=== PATIENT | male | born 1950 | race Caucasian/White ===

== ENCOUNTER 2020-04-26 15:57 | Outpatient (CLI) | payer MEDICARE, SELFPAY ==
--- NOTE | 2020-04-26 16:13 | XR_ITS ---
WS: [id number] PA and lateral chest, 04/26/2020 Clinical Data: COUGH/DYSPNEA Comparison: None. Findings: There are bilateral patchy opacities throughout both lungs. No definite masses or effusions are seen. The heart size is normal. The aortic arch and descending aorta are tortuous. No pneumothor ax is seen. XR/XR chest 2V* [id number] Impression: 1. Bilateral patchy opacities which could indicate acute pneumonia. 2. Atherosclerosis. 3. Recommend follow-up chest x-ray in one to 2 days.
== END 2020-04-26 15:58 | disposition home or self-care (01) ==
LOC: RAD 16:03
PROVIDERS: PCP Family Medicine; Visit Provider Family Medicine
DX: R05 Cough (principal); R06.00 Dyspnea, unspecified; I70.90 Unspecified atherosclerosis
CPT/HCPCS: 71046

== ENCOUNTER 2020-05-11 12:34 | Outpatient (CLI) | payer MEDICARE, SELFPAY ==
--- NOTE | 2020-05-11 12:43 | XR_ITS ---
WS: [id number] PA and lateral chest, 05/11/2020 Clinical Data: PNEUMONIA/COUGH/DYSPNEA Comparison: PA and lateral chest, 04/26/2020. Findings: There are bilateral patchy opacities throughout both lungs. Although this could represent a n acute pneumonia this could also represent chronic interstitial fibrosis. The heart is slightly enla rged. There are no effusions. No pneumothorax is noted. The aortic arch and descending aorta are tort uous. XR/XR chest 2V* [id number] Impression: 1. No change in extensive bilateral opacities throughout both lungs. 2. Atherosclerosis and mild cardiomegaly
== END 2020-05-11 12:35 | disposition home or self-care (01) ==
LOC: RAD 12:41
PROVIDERS: PCP Family Medicine; Visit Provider Family Medicine
DX: J18.9 Pneumonia, unspecified organism (principal); R05 Cough; R06.00 Dyspnea, unspecified; I70.90 Unspecified atherosclerosis; I51.7 Cardiomegaly
CPT/HCPCS: 71046

== ENCOUNTER 2020-05-19 12:39 | Outpatient (CLI) | payer MEDICARE, SELFPAY ==
--- NOTE | 2020-05-19 12:52 | CT_ITS ---
WS: [id number] CT scan of the chest with IV contrast, additional two-dimensional coronal and sagittal reconstruction was performed. 05/19/2020 Clinical Data: PNEUMONIA, COUGH, DYSPNEA Comparison: PA and lateral chest, 05/11/2020. DLP: 944.[address] scans at [facility] use at least one of these dose optimization techniques: automat ed exposure control; mA and/or kV adjustment per patient size (includes targeted exams where dose is matched to clinical indication); or iterative reconstruction. Findings: No nodules, masses or effusions are seen. There are extensive interstitial changes throughout both max ngs most consistent with chronic interstitial pneumonia. The heart size is normal with no pericardial effusion. The pulmonary arterial system and thoracic aorta demonstrate no abnormalities or dilatatio ns. The trachea bifurcates into the bronchi. The thyroid gland shows normal enhancement. There is no axillary or significant mediastinal adenopathy. There is a large hiatal hernia behind the heart. The upper abdomen demonstrates a gallstone. The spleen adrenal glands show no abnormalities. The juan carlos er shows fatty infiltration and minimal surface irregularity which can be seen with cirrhosis. There is enlargement of the head of the pancreas that patient may have a history of chronic pancreatitis. CT/CT chest w con* [id number] Impression: 1. Chronic interstitial change throughout the lung most consistent with chronic interstitial pneumonia. 2. Large hiatal hernia behind the heart. 3. Enlargement and irregularity of the head of the pancreas suggestive of chron ic pancreatitis. 4. Cholelithiasis.
[2020-05-19 13:14] LABS: Blood Urea Nitrogen 16 mg/dL (8-23); Glomerular Filtration Rate 84.2 mL/min (90-130)
[2020-05-19] MEDS: iohexol 300 mg/mL 100 mL Btl IV (13:21)
== END 2020-05-19 12:40 | disposition home or self-care (01) ==
PROVIDERS: PCP Family Medicine; Visit Provider Family Medicine
DX: J18.9 Pneumonia, unspecified organism (principal); R05 Cough; R06.00 Dyspnea, unspecified; K80.20 Calculus of gallbladder without cholecystitis without obstruction; Q45.3 Other congenital malformations of pancreas and pancreatic duct; K44.9 Diaphragmatic hernia without obstruction or gangrene
CPT/HCPCS: 71260; 82565; 84520; Q9967

== ENCOUNTER 2020-06-01 13:20 | Outpatient (CLI) | payer MEDICARE, SELFPAY ==
[2020-06-01 14:27] LABS: C Reactive Protein 9.8 mg/L (0.0-4.9); Creatine Phosphokinase 49 U/L (39-308)
[2020-06-01 15:44] LABS: Erythrocyte Sedimentation Rate 7 mm/hr (0-10)
[2020-06-02 13:22] LABS: Aldolase 4.8 U/L (< OR = 8.1)
[2020-06-02 13:58] LABS: Anti-Nuclear Antibody Screen NEGATIVE (NEGATIVE)
[2020-06-02 15:03] LABS: SCL 70 <1.0 NEG AI (<1.0 NEG); SS A Ro Sjogrens Antibody <1.0 NEG AI (<1.0 NEG); SS-B/LA IGG <1.0 NEG AI (<1.0 NEG)
[2020-06-02 16:42] LABS: Cyclic Citrullinated Peptide 100 UNITS
== END 2020-06-01 13:21 | disposition home or self-care (01) ==
PROVIDERS: PCP Nurse Practitioner Family; Visit Provider Internal Medicine Critical Care Medicine
DX: J84.9 Interstitial pulmonary disease, unspecified (principal)
CPT/HCPCS: 36415; 82085; 82550; 84182; 85651; 86038; 86140; 86235

== ENCOUNTER → 2020-07-07 08:10 | Outpatient (BNVA) | payer MEDICARE, SELFPAY | PROVIDERS: PCP Nurse Practitioner Family; Visit Provider Internal Medicine Critical Care Medicine | DX: Z01.812 Encounter for preprocedural laboratory examination (principal); Z20.822 Contact with and (suspected) exposure to COVID-19 | CPT/HCPCS: 87635 ==

== ENCOUNTER 2020-07-11 13:31 | Outpatient (CLI) | payer MEDICARE, SELFPAY ==
--- NOTE | 2020-07-11 13:30 | CT_ITS ---
WS: [id number] CT CHEST HIGH-RESOLUTION TECHNIQUE: High-resolution Noncontrast CT of the chest with coronal and sagittal reformatted images. Inspiration, expiration, prone imaging. CLINICAL INFORMATION: Interstitial lung disease COMPARISON: May 19, 2020 DLP: 1041.[address] scans at [facility] use at least one of these dose optimization techniques: automat ed exposure control; mA and/or kV adjustment per patient size (includes targeted exams where dose is matched to clinical indication); or iterative reconstruction. FINDINGS: Chronic interstitial thickening with reticular opacities throughout both lungs compatible with histor y of interstitial lung disease. Subpleural honeycombing in the mid and lower lungs bilaterally. Bronc hiectasis in both lower lobes. No air trapping on the expiratory imaging. Large esophageal hiatal hernia with partial intrathoracic stomach. No mediastinal or hilar lymphadeno henry. No axillary lymphadenopathy. Cholelithiasis. CT/CT chest wo con [id number] IMPRESSION: 1. Interstitial lung disease with subpleural honeycombing in the mid and lower lungs 2. No mediastinal or hilar lymphadenopathy. 3. Bronchiectasis in both lower lobes. 4. Large esophageal hiatal hernia with partial intrathoracic stomach. 5. Cholelithiasis.
--- NOTE | 2020-07-11 14:28 | PFTS_ITS ---
Date of Study:07/11/20 Date of Dictation: MECHANICS: Forced vital capacity (FVC) is reduced. Forced expiratory volume in one second (FEV1) is reduced. FEV1/FVC is normal. FLOW VOLUME LOOP: Narrow. LUNG VOLUMES: Total lung capacity (TLC) is reduced. Residual volume (RV) is reduced. DIFFUSING CAPACITY FOR CARBON MONOXIDE: Moderately reduced. INTERPRETATION: The postbronchodilator spirometry is consistent with moderately severe restriction. There is a significant postbronchodilator response. The lung volumes are consistent with restrictive lung disease. Gas exchange (DLCO) is moderately reduced. MTDD
== END 2020-07-11 13:32 | disposition home or self-care (01) ==
LOC: CT 13:34
PROVIDERS: PCP Nurse Practitioner Family; Visit Provider Internal Medicine Critical Care Medicine
DX: J84.9 Interstitial pulmonary disease, unspecified (principal); J47.9 Bronchiectasis, uncomplicated; K44.9 Diaphragmatic hernia without obstruction or gangrene; K80.20 Calculus of gallbladder without cholecystitis without obstruction
CPT/HCPCS: 71250; 94060; 94618; 94726; 94729

== ENCOUNTER → 2020-07-17 09:56 | Outpatient (BNVA) | payer MEDICARE, SELFPAY | PROVIDERS: PCP Nurse Practitioner Family; Visit Provider Internal Medicine Rheumatology | DX: J84.112 Idiopathic pulmonary fibrosis (principal); Z11.59 Encounter for screening for other viral diseases; Z11.1 Encounter for screening for respiratory tuberculosis; Z79.899 Other long term (current) drug therapy; Z79.52 Long term (current) use of systemic steroids | CPT/HCPCS: 99205 ==

== ENCOUNTER → 2020-09-13 09:19 | Outpatient (BNVA) | payer MEDICARE, SELFPAY | PROVIDERS: PCP Nurse Practitioner Family; Visit Provider Internal Medicine Rheumatology | DX: J84.9 Interstitial pulmonary disease, unspecified (principal); Z79.899 Other long term (current) drug therapy; Z11.59 Encounter for screening for other viral diseases; Z11.1 Encounter for screening for respiratory tuberculosis | CPT/HCPCS: 36415; 80076; 82306; 82565; 85025; 86140; 86431; 86480; 86704; 86803; 87340 ==

== ENCOUNTER → 2020-09-21 13:17 | Outpatient (BNVA) | payer MEDICARE, SELFPAY | PROVIDERS: PCP Nurse Practitioner Family; Visit Provider Internal Medicine Rheumatology | DX: J84.89 Other specified interstitial pulmonary diseases (principal); Z79.52 Long term (current) use of systemic steroids; Z71.89 Other specified counseling | CPT/HCPCS: 99214 ==

== ENCOUNTER 2020-10-04 12:00 | Outpatient (CLI) | payer MEDICARE, SELFPAY | END 2020-10-04 12:01 | disposition home or self-care (01) | LOC: SLEEP 10-05 16:09 | PROVIDERS: PCP Nurse Practitioner Family; Visit Provider Internal Medicine Critical Care Medicine | DX: J84.112 Idiopathic pulmonary fibrosis (principal) | CPT/HCPCS: 94762 ==

== ENCOUNTER 2020-10-26 14:26 | Outpatient (CLI) | payer MEDICARE, SELFPAY ==
[2020-10-26 14:47] LABS: Basophils % 0.2 %; Eosinophils # 0.1 10^3/uL (0.0-0.8); Eosinophils % 0.9 %; Hematocrit 47.8 % (42.0-52.0); Hemoglobin 15.9 g/dL (11.7-16.6); Lymphocytes # 2.3 10^3/uL (0.8-4.8); Lymphocytes % 23.7 %; Mean Corpuscular HGB Conc 33.3 g/dL (30.0-36.0); Mean Corpuscular Hemoglobin 29.7 pg (28.0-34.0); Mean Corpuscular Volume 89.3 fl (80-94); Mean Platelet Volume 9.7 fL (7.4-10.4); Monocytes # 0.9 10^3/uL (0.2-0.9); Monocytes % 9.1 %; Neutrophils # 6.37 10^3/uL (1.8-7.7); Neutrophils % 65.5 %; Nucleated Red Blood Cells % 0 %; Platelet Count 207 10^3/cmm (130-400); Red Blood Count 5.35 10^6/uL (4.1-5.3); Red Cell Distribution Width 12.7 % (12.1-15.1); White Blood Count 9.7 10^3/uL (4.0-10.0)
[2020-10-26 15:11] LABS: Alanine Aminotransferase 17 U/L (0-41); Albumin Level 3.7 g/dL (3.5-5.2); Alkaline Phosphatase 89 IU/L (40-130); Aspartate Amino Transferase 16 U/L (0-40); C Reactive Protein 15.6 mg/L (0.0-4.9); Globulin 2.5 g/dL (1.3-4.6); Glomerular Filtration Rate 74.3 mL/min (90-130); Total Bilirubin 0.4 mg/dL (0.15-1.2); Total Protein 6.2 g/dL (6.6-8.7)
== END 2020-10-26 14:27 | disposition home or self-care (01) ==
PROVIDERS: PCP Nurse Practitioner Family; Visit Provider Internal Medicine Rheumatology
DX: M06.9 Rheumatoid arthritis, unspecified (principal); Z79.899 Other long term (current) drug therapy
CPT/HCPCS: 36415; 80076; 82565; 85025; 86140

== ENCOUNTER → 2020-11-09 08:42 | Outpatient (BNVA) | payer MEDICARE, SELFPAY | PROVIDERS: PCP Nurse Practitioner Family; Visit Provider Internal Medicine Critical Care Medicine | DX: J45.909 Unspecified asthma, uncomplicated (principal); Z20.822 Contact with and (suspected) exposure to COVID-19 | CPT/HCPCS: 87635 ==

== ENCOUNTER 2020-11-14 12:53 | Outpatient (CLI) | payer MEDICARE, SELFPAY ==
--- NOTE | 2020-11-14 13:47 | PFTS_ITS ---
Date of Study:11/14/20 Date of Dictation: MECHANICS: Forced vital capacity (FVC) is reduced. Forced expiratory volume in one second (FEV1) is reduced. FEV1/FVC is normal. FLOW VOLUME LOOP: Narrow. LUNG VOLUMES: Total lung capacity (TLC) is reduced. Residual volume (RV) is reduced. DIFFUSING CAPACITY FOR CARBON MONOXIDE: Mild reduced. INTERPRETATION: The postbronchodilator spirometry is consistent with severe restriction. There is a significant postbronchodilator response. Lung volumes are consistent with severe restriction. Gas exchange (DLCO) is mildly reduced. MTDD
== END 2020-11-14 12:54 | disposition home or self-care (01) ==
PROVIDERS: PCP Nurse Practitioner Family; Visit Provider Internal Medicine Critical Care Medicine
DX: J84.9 Interstitial pulmonary disease, unspecified (principal)
CPT/HCPCS: 94060; 94618; 94726; 94729; J7611

== ENCOUNTER 2020-11-16 14:38 | Outpatient (CLI) | payer MEDICARE, SELFPAY ==
[2020-11-16 15:53] LABS: Alanine Aminotransferase 13 U/L (0-41); Albumin Level 3.6 g/dL (3.5-5.2); Alkaline Phosphatase 89 IU/L (40-130); Anion Gap 14.8 (5-19); Aspartate Amino Transferase 14 U/L (0-40); Blood Urea Nitrogen 14 mg/dL (8-23); Calcium 8.7 mg/dL (8.5-10.5); Carbon Dioxide 22 mmol/L (22-29); Chloride 104 mmol/L (98-107); Globulin 2.7 g/dL (1.3-4.6); Glomerular Filtration Rate 83.9 mL/min (90-130); Glucose 122 mg/dL (65-115); Osmolality Calculated 286 mOsm/kg (285-295); Potassium 3.8 mmol/L (3.5-5.1); Sodium 137 mmol/L (136-145); Total Bilirubin 0.3 mg/dL (0.15-1.2); Total Protein 6.3 g/dL (6.6-8.7)
== END 2020-11-16 14:39 | disposition home or self-care (01) ==
PROVIDERS: PCP Nurse Practitioner Family; Visit Provider Internal Medicine Critical Care Medicine
DX: J84.9 Interstitial pulmonary disease, unspecified (principal)
CPT/HCPCS: 80053

== ENCOUNTER 2021-01-05 13:57 | Outpatient (CLI) | payer MEDICARE, SELFPAY ==
[2021-01-05 15:38] LABS: Alanine Aminotransferase 14 U/L (0-41); Albumin Level 3.7 g/dL (3.5-5.2); Alkaline Phosphatase 103 IU/L (40-130); Anion Gap 15.9 (5-19); Aspartate Amino Transferase 12 U/L (0-40); Blood Urea Nitrogen 13 mg/dL (8-23); Calcium 8.7 mg/dL (8.5-10.5); Carbon Dioxide 23 mmol/L (22-29); Chloride 107 mmol/L (98-107); Globulin 2.7 g/dL (1.3-4.6); Glomerular Filtration Rate 66.6 mL/min (90-130); Glucose 122 mg/dL (65-115); Osmolality Calculated 295 mOsm/kg (285-295); Potassium 3.9 mmol/L (3.5-5.1); Sodium 142 mmol/L (136-145); Total Bilirubin 0.3 mg/dL (0.15-1.2); Total Protein 6.4 g/dL (6.6-8.7)
[2021-01-08 12:52] LABS: SS A Ro Sjogrens Antibody <1.0 NEG AI (<1.0 NEG); SS-B/LA IGG <1.0 NEG AI (<1.0 NEG)
[2021-01-09 11:33] LABS: Anti-Nuclear Antibody Screen NEGATIVE (NEGATIVE)
== END 2021-01-05 13:58 | disposition home or self-care (01) ==
PROVIDERS: PCP Nurse Practitioner Family; Visit Provider Internal Medicine Critical Care Medicine
DX: J84.9 Interstitial pulmonary disease, unspecified (principal); J45.909 Unspecified asthma, uncomplicated
CPT/HCPCS: 80053; 86038; 86235; 86431

== ENCOUNTER → 2021-01-24 13:38 | Outpatient (BNVA) | payer MEDICARE, SELFPAY | PROVIDERS: PCP Nurse Practitioner Family; Visit Provider Internal Medicine Rheumatology | DX: J84.9 Interstitial pulmonary disease, unspecified (principal); J84.112 Idiopathic pulmonary fibrosis; R79.89 Other specified abnormal findings of blood chemistry; Z79.52 Long term (current) use of systemic steroids; Z71.89 Other specified counseling | CPT/HCPCS: 99214 ==

== ENCOUNTER 2021-02-22 10:16 | Outpatient (CLI) | payer MEDICARE, SELFPAY ==
[2021-02-22 10:50] VITALS: BP 106/70; PULSE 88; RESP 18; TEMP 36.4; O2SAT 94; BMI 29.1
[2021-02-22 11:21] VITALS: BP 102/66; PULSE 84; RESP 18; TEMP 36.4; O2SAT 96
[2021-02-22 12:20] VITALS: BP 107/71; PULSE 79; RESP 18; TEMP 36.6; O2SAT 97
== END 2021-02-22 10:17 | disposition home or self-care (01) ==
LOC: OPS 10:17
PROVIDERS: PCP Nurse Practitioner Family; Visit Provider Nurse Practitioner
DX: U07.1 COVID-19 (principal)
CPT/HCPCS: 96365

== ENCOUNTER → 2021-03-26 10:27 | Outpatient (BNVA) | payer MEDICARE, SELFPAY | PROVIDERS: PCP Nurse Practitioner Family | DX: J45.909 Unspecified asthma, uncomplicated (principal); J84.9 Interstitial pulmonary disease, unspecified; Z20.822 Contact with and (suspected) exposure to COVID-19 | CPT/HCPCS: 87635 ==

== ENCOUNTER 2021-03-28 11:30 | Outpatient (CLI) | payer MEDICARE, SELFPAY ==
--- NOTE | 2021-03-28 12:40 | PFTS_ITS ---
Date of Study:03/28/21 Date of Dictation: 03/28/2021 MECHANICS: Post bronchodilator forced vital capacity (FVC) is reduced. Post bronchodilator forced expiratory volume in one second (FEV1) is severely reduced. FEV1/FVC is reduced. There is no significant response to bronchodilators. FLOW VOLUME LOOP: Postbronchodilator loop showed sloping of expiratory limb suggestive of airway obstruction LUNG VOLUMES: TLC is severely reduced.? RV is moderately reduced DIFFUSING CAPACITY FOR CARBON MONOXIDE: Severely reduced . INTERPRETATION: The prebronchodilator spirometry consistent with severe restriction. There is paradoxical decrease in FVC and FEV1 after bronchodilators and postbronchodilator spirometry revealed obstructive pattern. Lung volumes suggestive of severe restriction. There is severe gas transfer defect.? Clinical correlation recommended. MTDD
== END 2021-03-28 11:31 | disposition home or self-care (01) ==
PROVIDERS: PCP Nurse Practitioner Family; Visit Provider Internal Medicine Critical Care Medicine
DX: J84.9 Interstitial pulmonary disease, unspecified (principal)
CPT/HCPCS: 94060; 94618; 94726; 94729

== ENCOUNTER → 2021-04-20 10:57 | Outpatient (BNVA) | payer MEDICARE, SELFPAY | PROVIDERS: PCP Nurse Practitioner Family; Visit Provider Internal Medicine Critical Care Medicine | DX: R31.9 Hematuria, unspecified (principal); J84.9 Interstitial pulmonary disease, unspecified; J45.909 Unspecified asthma, uncomplicated; M06.9 Rheumatoid arthritis, unspecified; K21.9 Gastro-esophageal reflux disease without esophagitis | CPT/HCPCS: 80053; 81001; 85025; 87077; 87086; 87186; 99214 ==

== ENCOUNTER → 2021-05-02 13:48 | Outpatient (BNVA) | payer MEDICARE, SELFPAY | PROVIDERS: PCP Nurse Practitioner Family; Visit Provider Nurse Practitioner Family | DX: R31.0 Gross hematuria; Z12.5 Encounter for screening for malignant neoplasm of prostate | CPT/HCPCS: 81003; 87086; 88112; G0103 ==

== ENCOUNTER 2021-05-17 07:28 | Outpatient (CLI) | payer MEDICARE, SELFPAY ==
[2021-05-17] MEDS: iohexol 350 mg/mL 100 mL Btl IV (07:55)
--- NOTE | 2021-05-17 08:15 | CT_ITS ---
WS: [id number] CT ABDOMEN AND PELVIS WITH AND WITHOUT CONTRAST HISTORY: HEMATURIA TECHNIQUE: Unenhanced 5 mm axial imaging first performed through the abdomen. Post contrast imaging t hrough the abdomen and pelvis. Oral contrast has been provided. Sagittal and coronal reformats are s ubmitted. All CT scans at [facility] use at least one of these dose optimization techniques: automated exposure control; mA and/or kV adjustment per patient size (includes targeted exams where d ose is matched to clinical indication); or iterative reconstruction. CONTRAST: Omnipaque 350; 95 mL IV. DLP: 2642.12 mGy.cm COMPARISON: None available. Severe emphysematous changes at the lung bases. Interstitial thickening with reticulation and honeyco mbing and traction bronchiectasis from IUP. Mild to moderate enlargement of the heart. Moderate size hiatal hernia. Liver and spleen are normal size. No bile duct dilatation. Portal vein is normal. Normal size gallbla dder. There are multiple small gallbladder wall nodules which need to be further evaluated. There is also appears to be a stone in the dependent portion of the gallbladder versus polyp. There is a large collection with fluid and air centered in the mid to distal duodenum measuring 6.5 x 4.5 cm. There is an adjacent irregular collection containing air and soft tissue measuring 2.4 x 2.2 cm inseparable from the pancreatic head. There is a smaller collection along the posterior second po rtion of the duodenum. Aorta: Mild atherosclerosis of aorta. No aneurysm. SMA and celiac axis are normally enhancing. Renal arteries are normal. RIGHT kidney: 10.9 cm in length. No stone. No obstruction. Tiny cortical cyst measuring 6 mm from the mid kidney. LEFT kidney: 10.4 cm in length. No calcifications or obstruction. No ureteral stone. There are a few tiny scattered hypodensities which are much too small to characterize. No solid mass. Urinary bladder is only minimally distended. There is diffuse wall thickening throughout the bladder. No focal area of enhancement. Prostate gland is enlarged and heterogeneous with calcification encroa jaguar into the bladder. No ascites. No adenopathy. No GI tract obstruction. There is a slightly changing caliber of the dista l transverse colon this could be due to peristalsis. No adjacent adenopathy. No discrete mass identif ied. Bilateral patent inguinal canals containing fat only. No osteoblastic or osteolytic bone disease. The appendix is normal. CT/CT abdomen pelvis wo/w [id number] IMPRESSION: 1. No renal mass or calcification. No renal obstruction. 2. Minimally distended urinary bladder with diffuse irregular bladder wall thi ckening. Probably due to chronic outlet obstruction. No focal nodule. Prostate gland enlargement. 3. Abnormal gallbladder. Small nodules within the wall the gallbladder and cho lelithiasis. Recommend gallbladder ultrasound to further evaluate. Gallbladder polyps versus early neoplasm versus adenomyomatosis. 4. Several mixed density collections containing air and fluid and possible so ft tissue centered in the mid to distal duodenal C-loop and pancreatic head. Th evelio may be large duodenal diverticula. Necrotic mass is not excluded. The large st collection measures 6.5 x 4.5 cm which is larger than a typical diverticulum . The smaller collection at the pancreatic head may be a necrotic neoplasm. But also similar appearance of an abscess. Additional smaller collection along the posterior second portion of the duodenum. No bile duct dilatation. Upper endos copy may be the most helpful. ERCP may be necessary. Notified Aster Sanchez APRN at 05/17/2021 8:38 AM.
== END 2021-05-17 07:29 | disposition home or self-care (01) ==
PROVIDERS: PCP Nurse Practitioner Family; Visit Provider Nurse Practitioner Family
DX: R31.9 Hematuria, unspecified (principal); N40.0 Benign prostatic hyperplasia without lower urinary tract symptoms; K80.20 Calculus of gallbladder without cholecystitis without obstruction
CPT/HCPCS: 74178; 81003

== ENCOUNTER → 2021-05-21 13:21 | Outpatient (BNVA) | payer MEDICARE, SELFPAY | PROVIDERS: PCP Nurse Practitioner Family; Visit Provider Internal Medicine Rheumatology | DX: J84.112 Idiopathic pulmonary fibrosis (principal); R79.89 Other specified abnormal findings of blood chemistry; K57.10 Diverticulosis of small intestine without perforation or abscess without bleeding; K86.89 Other specified diseases of pancreas; Z79.52 Long term (current) use of systemic steroids; Z76.82 Awaiting organ transplant status | CPT/HCPCS: 99214 ==

== ENCOUNTER → 2021-05-22 10:20 | Outpatient (BNVA) | payer MEDICARE, SELFPAY | PROVIDERS: PCP Nurse Practitioner Family; Visit Provider Surgery | DX: K86.89 Other specified diseases of pancreas (principal); K57.10 Diverticulosis of small intestine without perforation or abscess without bleeding | CPT/HCPCS: 99204 ==

== ENCOUNTER 2021-07-12 07:45 | Outpatient (CLI) | payer MEDICARE, SELFPAY ==
--- NOTE | 2021-07-12 08:00 | MR_ITS ---
WS: [id number] MRI/MRCP OF THE ABDOMEN WITHOUT GADOLINIUM ENHANCEMENT TECHNIQUE: Thin and thick slab MRCP, Axial T2, Coronal MRCP, Axial Dual Echo, and Axial 2-D Fiesta imaging was obtained. Coronal 2-D Fiesta imaging. CLINICAL INFORMATION: pancreatic mass COMPARISON: Outside CT abdomen pelvis May 30, [address] May 17, 2021 FINDINGS: Some images degraded by patient motion. Mild diffuse fatty infiltration of the liver. No intrahepatic biliary ductal dilatation. Normal gloria l vein and splenic vein. Normal spleen. Large esophageal hiatal hernia with intrathoracic stomach. Pa tchy infiltrate/atelectasis with fibrosis in the lung bases. Pancreas appears normal. No pancreatic d uctal dilatation. No visualized pancreatic mass. Again seen are the diverticuli involving the 2nd and 3rd portion the duodenum with air-fluid levels. These appear stable compared to the prior CTs. No pancreatic duct dilatation. Adrenal glands are normal. No hydronephrosis in either kidney. Small RIGHT cortical cyst. Tiny calcul i within the gallbladder. Common bile duct appears normal. MR/MR MRCP [id number] Impression: 1. 2 large duodenal diverticuli are similar in appearance to the prior examina tion with the largest involving the 3rd portion the duodenum with an air-fluid level. 2. No convincing evidence of pancreatic mass or lesion. 3. No evidence of gastric outlet obstruction. 4. Large esophageal hiatal hernia. 5. Tiny gallbladder calculi. The common bile duct appears normal. 6. Patchy infiltrate/atelectasis with fibrosis in the lung bases.
== END 2021-07-12 07:46 | disposition home or self-care (01) ==
PROVIDERS: PCP Nurse Practitioner Family; Visit Provider Surgery
DX: K86.89 Other specified diseases of pancreas (principal); K44.9 Diaphragmatic hernia without obstruction or gangrene; K80.20 Calculus of gallbladder without cholecystitis without obstruction; R91.8 Other nonspecific abnormal finding of lung field
CPT/HCPCS: 74181

== ENCOUNTER → 2021-07-17 13:31 | Outpatient (BNVA) | payer MEDICARE, SELFPAY | PROVIDERS: PCP Nurse Practitioner Family; Visit Provider Internal Medicine Critical Care Medicine | DX: J84.9 Interstitial pulmonary disease, unspecified (principal); R31.0 Gross hematuria; J45.909 Unspecified asthma, uncomplicated; K21.9 Gastro-esophageal reflux disease without esophagitis | CPT/HCPCS: 80053; 99214 ==

== ENCOUNTER 2021-08-30 09:24 | Outpatient (CLI) | payer MEDICARE, SELFPAY ==
--- NOTE | 2021-08-30 09:30 | XR_ITS ---
WS: [id number] SCREENING DEXA SCAN [employer] CLINICAL INFORMATION: Required prior to Consultation COMPARISON: None. FINDINGS: The L1-L4 bone mineral density measures 1.175 g/cm2. This corresponds to a T score score of -0.4 and Z score of -0.1. Left femoral neck bone mineral density measures 1.355 g/cm2. This corresponds to a T score of 1.8 and Z score of 2.3. Right femoral neck bone mineral density measures 0.925 g/cm2. This corresponds to a T score -1.2of an d Z score of -0.7. Mean femoral neck bone mineral density measures 1.140 g/cm2. This corresponds to a T score of 0.3 and Z score of 0.8. XR/XR DEXA axial skeleton* [id number] IMPRESSION: Normal bone mineralization in the lumbar spine and femoral necks. Patient's FRAX calculated 10 year probability for major osteoporotic fracture i s 9.0 % and osteoporotic hip fracture is 2.1%.
== END 2021-08-30 09:25 | disposition home or self-care (01) ==
LOC: RAD 09:26
PROVIDERS: PCP Nurse Practitioner Family; Visit Provider Internal Medicine Critical Care Medicine
DX: Z01.818 Encounter for other preprocedural examination (principal)
CPT/HCPCS: 77080

== ENCOUNTER → 2021-09-13 11:10 | Outpatient (BNVA) | payer MEDICARE, SELFPAY | PROVIDERS: PCP Nurse Practitioner Family; Visit Provider Internal Medicine Rheumatology | DX: J84.112 Idiopathic pulmonary fibrosis (principal); Z79.899 Other long term (current) drug therapy; R79.89 Other specified abnormal findings of blood chemistry; K57.10 Diverticulosis of small intestine without perforation or abscess without bleeding; K86.89 Other specified diseases of pancreas; Z79.52 Long term (current) use of systemic steroids | CPT/HCPCS: 99214 ==

== ENCOUNTER 2021-10-17 14:53 | Outpatient (RCR) | payer MEDICARE, SELFPAY | END 2021-11-09 23:59 | disposition home or self-care (01) | LOC: PULRHB 14:53 | PROVIDERS: PCP Nurse Practitioner Family; Visit Provider Internal Medicine Critical Care Medicine | DX: J84.9 Interstitial pulmonary disease, unspecified (principal) | CPT/HCPCS: G0237; G0238 ==

== ENCOUNTER → 2021-10-19 10:16 | Outpatient (BNVA) | payer MEDICARE, SELFPAY | PROVIDERS: PCP Nurse Practitioner Family; Visit Provider Internal Medicine Critical Care Medicine | DX: J84.9 Interstitial pulmonary disease, unspecified (principal); R31.0 Gross hematuria; J45.909 Unspecified asthma, uncomplicated; N39.0 Urinary tract infection, site not specified; Z99.81 Dependence on supplemental oxygen | CPT/HCPCS: 99214 ==

== ENCOUNTER 2021-11-10 06:00 | Outpatient (RCR) | payer MEDICARE, SELFPAY | END 2021-12-10 23:59 | disposition home or self-care (01) | LOC: PULRHB 06:00 | PROVIDERS: PCP Nurse Practitioner Family; Visit Provider Internal Medicine Critical Care Medicine | DX: J84.9 Interstitial pulmonary disease, unspecified (principal) | CPT/HCPCS: G0237; G0238 ==

== ENCOUNTER 2021-12-11 06:00 | Outpatient (RCR) | payer MEDICARE, SELFPAY | END 2022-01-09 23:59 | disposition home or self-care (01) | LOC: PULRHB 06:00 | PROVIDERS: PCP Nurse Practitioner Family; Visit Provider Internal Medicine Critical Care Medicine | DX: J84.9 Interstitial pulmonary disease, unspecified (principal) | CPT/HCPCS: G0237; G0238; G0239 ==

== ENCOUNTER 2022-01-10 06:00 | Outpatient (RCR) | payer MEDICARE, SELFPAY | END 2022-02-09 23:59 | disposition home or self-care (01) | LOC: PULRHB 06:00 | PROVIDERS: PCP Nurse Practitioner Family; Visit Provider Internal Medicine Critical Care Medicine | DX: J84.9 Interstitial pulmonary disease, unspecified (principal) | CPT/HCPCS: G0239 ==

== ENCOUNTER → 2022-03-04 09:21 | Outpatient (BNVA) | payer MEDICARE, SELFPAY | PROVIDERS: PCP Nurse Practitioner Family; Visit Provider Internal Medicine Pulmonary Disease | DX: R31.0 Gross hematuria; J45.909 Unspecified asthma, uncomplicated; J84.112 Idiopathic pulmonary fibrosis; Z99.81 Dependence on supplemental oxygen | CPT/HCPCS: 99214 ==

== ENCOUNTER → 2022-03-19 10:53 | Outpatient (BNVA) | payer MEDICARE, SELFPAY | PROVIDERS: PCP Nurse Practitioner Family; Visit Provider Internal Medicine Rheumatology | DX: J84.112 Idiopathic pulmonary fibrosis (principal); Z79.899 Other long term (current) drug therapy; R79.89 Other specified abnormal findings of blood chemistry; K57.10 Diverticulosis of small intestine without perforation or abscess without bleeding; K86.89 Other specified diseases of pancreas; Z79.52 Long term (current) use of systemic steroids | CPT/HCPCS: 99214 ==

== ENCOUNTER → 2022-07-16 11:17 | Outpatient (BNVA) | payer MEDICARE, SELFPAY | PROVIDERS: PCP Clinical Nurse Specialist Adult Health; Visit Provider Internal Medicine Rheumatology | DX: J84.112 Idiopathic pulmonary fibrosis (principal); R79.89 Other specified abnormal findings of blood chemistry; K57.10 Diverticulosis of small intestine without perforation or abscess without bleeding; K86.89 Other specified diseases of pancreas; Z94.2 Lung transplant status | CPT/HCPCS: 99214 ==

== ENCOUNTER → 2022-08-12 08:26 | Outpatient (BNVA) | payer MEDICARE, SELFPAY | PROVIDERS: PCP Clinical Nurse Specialist Adult Health; Visit Provider Clinical Nurse Specialist Adult Health | DX: Z48.24 Encounter for aftercare following lung transplant (principal) | CPT/HCPCS: 85025; 87496 ==

== ENCOUNTER → 2022-08-20 09:10 | Outpatient (BNVA) | payer MEDICARE, SELFPAY | PROVIDERS: PCP Clinical Nurse Specialist Adult Health; Visit Provider Clinical Nurse Specialist Adult Health | DX: Z48.24 Encounter for aftercare following lung transplant (principal) | CPT/HCPCS: 80053; 80197 ==

== ENCOUNTER → 2022-09-02 09:21 | Outpatient (BNVA) | payer MEDICARE, SELFPAY | PROVIDERS: PCP Clinical Nurse Specialist Adult Health; Visit Provider Internal Medicine Pulmonary Disease | DX: J84.9 Interstitial pulmonary disease, unspecified (principal); J45.909 Unspecified asthma, uncomplicated | CPT/HCPCS: 99214 ==

== ENCOUNTER → 2022-09-10 09:03 | Outpatient (BNVA) | payer MEDICARE, SELFPAY | PROVIDERS: PCP Clinical Nurse Specialist Adult Health; Visit Provider Clinical Nurse Specialist Adult Health | DX: Z48.24 Encounter for aftercare following lung transplant (principal) | CPT/HCPCS: 80048; 80197 ==

== ENCOUNTER → 2022-10-11 10:13 | Outpatient (BNVA) | payer MEDICARE, SELFPAY | PROVIDERS: PCP Clinical Nurse Specialist Adult Health; Visit Provider Nurse Practitioner Family | DX: L57.0 Actinic keratosis (principal); Z85.828 Personal history of other malignant neoplasm of skin; Z85.820 Personal history of malignant melanoma of skin; L81.4 Other melanin hyperpigmentation; L57.8 Other skin changes due to chronic exposure to nonionizing radiation | CPT/HCPCS: 17000; 17003; 99213 ==

== ENCOUNTER 2022-10-31 08:19 | Outpatient (CLI) | payer MEDICARE, SELFPAY ==
--- NOTE | 2022-10-31 08:51 | XR_ITS ---
WS: [id number] XR chest 2V* [id number] REASON FOR EXAM: post lung transplant FINDINGS: Thoracic aorta and heart are within normal limits. In comparison to the prior examination of 05/11/2020, there is been significant resolution of the diffu se reticular interstitial lung opacities. Residual abnormality remains in both lung bases, most notab ly on the left. The left lung is better aerated than the right. There is a right pleural effusion. Presumed hiatal hernia without change compared to the previous study. IMPRESSION: Interval improvement in the lung parenchyma since the previous examination although residual abnormal ity persists. Right pleural effusion.
[2022-10-31 09:18] LABS: Basophils % 0.2 %; Eosinophils # 0.1 10^3/uL (0.0-0.8); Eosinophils % 1.8 %; Hematocrit 39.6 % (37-53); Lymphocytes # 1.5 10^3/uL (0.8-4.8); Lymphocytes % 29.4 %; Mean Corpuscular HGB Conc 31.8 g/dL (30-55); Mean Corpuscular Hemoglobin 31.3 pg (27-33); Mean Corpuscular Volume 98.3 fl (82-101); Mean Platelet Volume 10.8 fL (7.4-10.4); Monocytes # 0.7 10^3/uL (0.2-0.9); Monocytes % 13.8 %; Neutrophils # 2.59 10^3/uL (1.8-7.7); Neutrophils % 50.5 %; Nucleated Red Blood Cells % 0 %; Platelet Count 147 10^3/cmm (157-399); Red Blood Count 4.03 10^6/uL (3.85-5.65); Red Cell Distribution Width 12.9 % (12.1-15.1); White Blood Count 5.13 10^3/uL (3.29-11.43)
[2022-10-31 09:46] LABS: Alanine Aminotransferase 18 U/L (0-41); Alkaline Phosphatase 62 U/L (40-130); Anion Gap 12.1 (5-19); Aspartate Amino Transferase 18 U/L (0-40); Blood Urea Nitrogen 19 mg/dL (8-23); Calcium 8.9 mg/dL (8.5-10.5); Carbon Dioxide 27 mmol/L (22-29); Chloride 106 mmol/L (98-107); Globulin 1.9 g/dL (1.3-4.6); Glomerular Filtration Rate 50.1 mL/min (90-130); Glucose 98 mg/dL (65-115); Osmolality Calculated 294 mOsm/kg (285-295); Potassium 4.1 mmol/L (3.5-5.1); Sodium 141 mmol/L (136-145); Total Bilirubin 0.3 mg/dL (0.15-1.2); Total Protein 5.9 g/dL (6.6-8.7)
[2022-11-04 21:55] LABS: CMV DNA By PCR NOT DETECTED; CMV DNA, QN PCR NOT DETECTED Log IU/mL; SOURCE WHOLE BLOOD
== END 2022-10-31 08:20 | disposition home or self-care (01) ==
PROVIDERS: PCP Clinical Nurse Specialist Adult Health; Visit Provider Internal Medicine Pulmonary Disease
DX: Z94.2 Lung transplant status (principal); Z48.298 Encounter for aftercare following other organ transplant; J90 Pleural effusion, not elsewhere classified
CPT/HCPCS: 36415; 71046; 80053; 80197; 85025; 87496

== ENCOUNTER → 2022-11-06 13:50 | Outpatient (BNVA) | payer MEDICARE, SELFPAY | PROVIDERS: PCP Clinical Nurse Specialist Adult Health; Visit Provider Internal Medicine Pulmonary Disease | DX: J84.9 Interstitial pulmonary disease, unspecified (principal); J45.909 Unspecified asthma, uncomplicated; Z99.81 Dependence on supplemental oxygen; D84.9 Immunodeficiency, unspecified; Z94.2 Lung transplant status | CPT/HCPCS: 99214 ==

== ENCOUNTER → 2022-11-12 11:33 | Outpatient (BNVA) | payer MEDICARE, SELFPAY | PROVIDERS: PCP Clinical Nurse Specialist Adult Health; Visit Provider Internal Medicine Rheumatology | DX: J84.112 Idiopathic pulmonary fibrosis (principal); R79.89 Other specified abnormal findings of blood chemistry; K57.10 Diverticulosis of small intestine without perforation or abscess without bleeding; K86.89 Other specified diseases of pancreas; Z94.2 Lung transplant status | CPT/HCPCS: 99214 ==

== ENCOUNTER 2022-11-19 13:20 | Outpatient (CLI) | payer MEDICARE, SELFPAY | END 2022-11-19 13:21 | disposition home or self-care (01) | PROVIDERS: PCP Clinical Nurse Specialist Adult Health; Visit Provider Internal Medicine Pulmonary Disease | DX: Z94.2 Lung transplant status (principal); Z48.298 Encounter for aftercare following other organ transplant | CPT/HCPCS: 94010; 94618 ==

== ENCOUNTER 2022-11-28 08:21 | Outpatient (CLI) | payer MEDICARE, SELFPAY ==
--- NOTE | 2022-11-28 08:34 | XRR_ITS ---
PROCEDURE INFORMATION: Exam: XR Chest Exam date and time: 11/28/2022 8:38 AM Age: 72 years old Clinical indication: Screening exam; Other screening; Prior surgery; Surgery date: 6+ months; Surgery type: Lung transplant 8 months ago; Additional info: Post lung transplant TECHNIQUE: Imaging protocol: Radiologic exam of the chest. Views: 2 views. COMPARISON: CR XR chest 2V* [id number] 10/31/2022 9:10 AM FINDINGS: Lungs: Questionable mild persistent scarring in the right lung base. Left basilar retrocardiac consolidation similar to prior exam. Pleural spaces: No pneumothorax. No pleural effusion. Heart/Mediastinum: Possible hiatal hernia similar to prior exam. Bones/joints: Median sternotomy wires noted. XR/XR chest 2V* [id number] IMPRESSION: No significant change from prior exam.
[2022-11-28 09:22] LABS: Basophils % 0.2 %; Eosinophils # 0.1 10^3/uL (0.0-0.8); Hematocrit 39.8 % (37-53); Lymphocytes # 1.3 10^3/uL (0.8-4.8); Lymphocytes % 26.3 %; Mean Corpuscular HGB Conc 31.4 g/dL (30-55); Mean Corpuscular Hemoglobin 30.6 pg (27-33); Mean Corpuscular Volume 97.3 fl (82-101); Mean Platelet Volume 10.3 fL (7.4-10.4); Monocytes # 0.7 10^3/uL (0.2-0.9); Monocytes % 12.9 %; Neutrophils # 2.82 10^3/uL (1.8-7.7); Neutrophils % 56.2 %; Nucleated Red Blood Cells % 0 %; Platelet Count 146 10^3/cmm (157-399); Red Blood Count 4.09 10^6/uL (3.85-5.65); Red Cell Distribution Width 13.2 % (12.1-15.1); White Blood Count 5.02 10^3/uL (3.29-11.43)
[2022-11-28 09:48] LABS: Alanine Aminotransferase 21 U/L (0-41); Alkaline Phosphatase 58 U/L (40-130); Anion Gap 14.8 (5-19); Aspartate Amino Transferase 20 U/L (0-40); Blood Urea Nitrogen 21 mg/dL (8-23); Calcium 9.2 mg/dL (8.5-10.5); Carbon Dioxide 23 mmol/L (22-29); Chloride 108 mmol/L (98-107); Globulin 1.9 g/dL (1.3-4.6); Glomerular Filtration Rate 59.9 mL/min (90-130); Glucose 102 mg/dL (65-115); Osmolality Calculated 295 mOsm/kg (285-295); Potassium 4.8 mmol/L (3.5-5.1); Sodium 141 mmol/L (136-145); Total Bilirubin 0.3 mg/dL (0.15-1.2); Total Protein 5.9 g/dL (6.6-8.7)
== END 2022-11-28 08:22 | disposition home or self-care (01) ==
PROVIDERS: PCP Clinical Nurse Specialist Adult Health; Visit Provider Internal Medicine Pulmonary Disease
DX: Z94.2 Lung transplant status (principal)
CPT/HCPCS: 36415; 71046; 80053; 85025

== ENCOUNTER → 2022-12-03 13:15 | Outpatient (BNVA) | payer MEDICARE, SELFPAY | PROVIDERS: PCP Clinical Nurse Specialist Adult Health; Visit Provider Internal Medicine Pulmonary Disease | DX: J84.9 Interstitial pulmonary disease, unspecified (principal); J45.909 Unspecified asthma, uncomplicated; Z99.81 Dependence on supplemental oxygen; Z94.2 Lung transplant status; D84.821 Immunodeficiency due to drugs | CPT/HCPCS: 99214 ==

== ENCOUNTER 2022-12-30 08:22 | Outpatient (CLI) | payer MEDICARE, SELFPAY ==
--- NOTE | 2022-12-30 08:44 | XRR_ITS ---
PROCEDURE INFORMATION: Exam: XR Chest Exam date and time: 12/30/2022 9:00 AM Age: 72 years old Clinical indication: Condition or disease; Other: Post op; Prior surgery; Surgery date: <1 month; Surgery type: SX date not specified; Additional info: Transplant recipient TECHNIQUE: Imaging protocol: Radiologic exam of the chest. Views: 2 views. COMPARISON: CR XR chest 2V* [id number] 11/28/2022 8:38 AM FINDINGS: Lungs: No focal consolidation. Pleural spaces: No large pleural effusion. No significant pneumothorax. Heart/Mediastinum: Hiatal hernia, unchanged. Cardiomediastinal silhouette is stable. Bones/joints: Median sternotomy wires, unchanged. Osseous structures are unchanged from prior. XR/XR chest 2V* [id number] IMPRESSION: No focal consolidation.
[2022-12-30 08:59] LABS: Basophils % 0.2 %; Eosinophils # 0.1 10^3/uL (0.0-0.8); Hematocrit 38.4 % (37-53); Lymphocytes # 1.3 10^3/uL (0.8-4.8); Lymphocytes % 25.3 %; Mean Corpuscular HGB Conc 31.8 g/dL (30-55); Mean Corpuscular Volume 94.3 fl (82-101); Mean Platelet Volume 10.8 fL (7.4-10.4); Monocytes # 0.6 10^3/uL (0.2-0.9); Monocytes % 11.9 %; Neutrophils # 2.71 10^3/uL (1.8-7.7); Neutrophils % 53.5 %; Nucleated Red Blood Cells % 0 %; Platelet Count 141 10^3/cmm (157-399); Red Blood Count 4.07 10^6/uL (3.85-5.65); Red Cell Distribution Width 13.9 % (12.1-15.1); White Blood Count 5.06 10^3/uL (3.29-11.43)
[2022-12-30 09:22] LABS: Alanine Aminotransferase 18 U/L (0-41); Albumin Level 3.5 g/dL (3.5-5.2); Alkaline Phosphatase 55 U/L (40-130); Anion Gap 14.2 (5-19); Aspartate Amino Transferase 19 U/L (0-40); Blood Urea Nitrogen 22 mg/dL (8-23); Calcium 8.7 mg/dL (8.5-10.5); Carbon Dioxide 20 mmol/L (22-29); Chloride 108 mmol/L (98-107); Globulin 2.4 g/dL (1.3-4.6); Glomerular Filtration Rate 59.9 mL/min (90-130); Glucose 110 mg/dL (65-115); Osmolality Calculated 290 mOsm/kg (285-295); Potassium 4.2 mmol/L (3.5-5.1); Sodium 138 mmol/L (136-145); Total Bilirubin 0.3 mg/dL (0.15-1.2); Total Protein 5.9 g/dL (6.6-8.7)
[2022-12-30 09:47] LABS: Slide Review Slide Review Perform
== END 2022-12-30 08:23 | disposition home or self-care (01) ==
PROVIDERS: PCP Clinical Nurse Specialist Adult Health; Visit Provider Internal Medicine Pulmonary Disease
DX: Z94.2 Lung transplant status (principal)
CPT/HCPCS: 36415; 71046; 80053; 80197; 85025

== ENCOUNTER → 2023-01-07 13:18 | Outpatient (BNVA) | payer MEDICARE, SELFPAY | PROVIDERS: PCP Clinical Nurse Specialist Adult Health; Visit Provider Internal Medicine Pulmonary Disease | DX: J84.9 Interstitial pulmonary disease, unspecified (principal); J45.20 Mild intermittent asthma, uncomplicated | CPT/HCPCS: 99214 ==

== ENCOUNTER 2023-01-14 11:47 | Outpatient (CLI) | payer MEDICARE, SELFPAY | END 2023-01-14 11:48 | disposition home or self-care (01) | LOC: RT 11:47 | PROVIDERS: PCP Clinical Nurse Specialist Adult Health; Visit Provider Internal Medicine Pulmonary Disease | DX: Z94.2 Lung transplant status (principal) | CPT/HCPCS: 94010 ==

== ENCOUNTER 2023-01-24 19:39 | Emergency (ER) | payer MEDICARE, SELFPAY ==
[2023-01-24 19:46] VITALS: BP 110/55; PULSE 85; RESP 18; TEMP 36.6; O2SAT 93
--- NOTE | 2023-01-24 20:14 | ED_ITS ---
HPI - Nausea/Vomiting/Diarrhea 2 General: Chief complaint: Nausea/Vomiting/Diarrhea Stated complaint: N/V/D Time Seen by Provider: 01/24/23 19:43 History of Present Illness: Jose is a 72-year-old man that presents to the emergency department with complaints of nausea, vomiting, diarrhea that started approximately 8 hours and has evolved. Patient denies fever, chills, chest pain, shortness of breath. He denies any abdominal pain. Patient is a bilateral lung transplant and was concerned he would not be able to take his medications due to the vomiting. Associated nausea: Yes Associated symtoms: Reports nausea; Denies bloating, chest pain, dizziness, dysuria, fatigue, headache(s), malaise, palpitations or tinnitus Review of Systems 2 General: Reports: 10 or more systems reviewed and unremarkable except in HPI and below Const: Denies: fever(s), chills, change in appetite, change in weight, fatigue or malaise ENMT: Denies: throat pain, enlarged tonsils, odynophagia, hoarseness, ear or mastoid pain, ear discharge, change in hearing, tinnitus, nasal discharge, nasal congestion, post nasal drip or sinus pain Card: Denies: chest pain, palpitations, irregular heart rhythm, edema, dyspnea on exertion, orthopnea or leg pain with exertion Resp: Denies: dyspnea, productive cough, non-productive cough, wheezing, stridor or chest congestion GI: Reports: nausea, vomiting and diarrhea; Denies: abdominal pain, dysphagia, constipation, bloating, GI cramping or hematochezia : Denies: flank pain, dysuria, urinary frequency, urinary urgency, urinary hesitancy, oliguria or hematuria Neuro: Denies: headache(s), numbness in extremities, weakness in extremities, sensory changes, lack of coordination, difficulty walking, frequent falls, dizziness, confusion, Slurred speech present, difficulty communicating thoughts, seizure-like activity or involuntary movements PFSH ED 2 PFSH: Medical History CMV (cytomegalovirus) antibody positive Idiopathic pulmonary fibrosis prior to lung transplant 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 COVID-19 vaccine administered UIP (usual interstitial pneumonitis) GERD with apnea Surgical History Lung transplant status, bilateral Mar History of bilateral cataract extraction History of colonoscopy 2018 History of esophagogastroduodenoscopy (EGD) with dialation 2017 H/O circumcision Family History Mother , at age 75 Cancer stomach cancer Father , at age 77 Heart attack Brother Cancer Lung cancer-smoking Other CAD (coronary artery disease) Clotting disorder Dementia Hyperlipidemia Hypertension Denies family history of Rheumatoid arthritis Diabetes Lupus Chronic kidney disease (CKD) Anesthesia complication Bleeding disorder Family history of premature coronary artery disease Lung disease Stroke Social History Smoking and tobacco/nicotine status: never used tobacco/nicotine Alcohol intake: never Substance/Drug Use: never Marital status: Current occupational status: employed Do you think of yourself as: Straight/Heterosexual Physical Exam 2 Const: COMMON NORMALS: no acute distress, patient oriented x3 and alert G ENERAL APPEARANCE: cooperative ORIENTATION/CONSCIOUSNESS: Yes awake, Yes oriented to person, Yes oriented to place and Yes oriented to time HENMT: COMMON NORMALS: normocephalic and atraumatic HEAD & SCALP: n ormocephalic and atraumatic FACE & SINUS: normal facial exam MOUTH: Normal oral and palatal mucosa present THROAT: posterior oropharynx normal Eye: COMMON NORMALS: Equal, round and reactive pupils present, EOMs intact bilaterally, conjunctivae normal and no scleral icterus GENERAL EYE: a ppearance normal, both eyes and all related structures ALIGNMENT: Yes alignment normal PERIORBITAL: periorbital findings normal CONJUNCTIVA: Yes conjunctivae normal PUPIL: Yes Equal, round and reactive pupils present Neck/C-Spine: COMMON NORMALS: full ROM GENERAL: Yes normal visual inspection Lymph: LYMPHATIC: no lymphadenopathy noted Chest: COMMONS NORMALS: normal inspection of the chest Breast/axilla inspection: Yes no chest deformity, asymmetry, normal contours, no nodules, masses, tenderness Resp: COMMON NORMALS: normal respiratory effort, No retractions, No use of accessory muscles and clear to auscultation bilaterally EFFORT & INSPECTION: Yes able to speak in complete sentences and Yes symmetric chest movement A USCULTATION: clear to auscultation bilaterally Cardio: COMMON NORMALS: regular rate, regular rhythm and Peripheral pulses 2+ throughout RATE: regular rate RHYTHM: regular rhythm PERIPHERAL PULSES: Peripheral pulses 2+ throughout GI: COMMON NORMALS: Soft to palpation, non-tender and No hepatosplenomegaly present INSPECTION: Yes normal to inspection AUSCULTATION: Yes Hyperactive bowel sounds present PALPATION: Yes Soft to palpation and Yes No hepatosplenomegaly present RECTAL EXAM: Yes deferred Extremity: COMMON NORMALS: normal to inspection GENERAL: Yes normal exam except as noted Neuro: COMMON NORMALS: patient oriented x3 SENSORIUM/ORIENTATION: Yes alert, Yes oriented to person, Yes oriented to place and Yes oriented to time CRANIAL NERVES: Yes CN normal except as noted Psych: COMMON NORMALS: mental status grossly normal, Normal thought process present, cooperative, activity/motor behavior normal, denies homicidal ideation and denies suicidal ideation THOUGHT PROCESS: Normal thought process present Skin: COMMON NORMALS: no rashes or lesions noted, no wounds and turgor normal GENERAL SKIN EXAM: no rashes or lesions noted and turgor normal Course 2 Vital Signs: Vital signs: Vital Signs Temperature 97.8 F 01/24/23 19:46 Pulse Rate 85 01/24/23 19:46 Respiratory Rate 18 01/24/23 19:46 Blood Pressure 110/55 01/24/23 19:46 Pulse Oximetry 93 01/24/23 19:46 Oxygen Delivery Me thod Room Air 01/24/23 19:46 MDM - Nausea/Vomiting/Diarrhea Medical Decision Making Patient was evaluated in the emergency department with nausea vomiting diarrhea. The differential diagnoses include viral illness, gastroenteritis, diverticulitis, pancreatitis, cholelithiasis/cholecystitis. Patient has a history of questionable pancreatic mass that was evaluated in [place]. 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 Patient denies any issues. He denies abdominal pain at this time. He underwent laboratory evaluation that included a CBC, CMP, lactic acid and urinalysis. I included a lipase. Laboratory studies revealed elevated BUN and creatinine. He is on tacrolimus which has caused him issues with renal function in the past. His other laboratory evaluation revealed a lipase of 388 and lactic acid 2.5. Patient was given 2 L of fluid and 1 dose of Zofran which improved his symptoms drastically. Patient has been able to tolerate p.o. fluids. I reviewed the case with Dr. hTomas, my attending who agrees that the patient likely can be managed at home for now. Should he develop any abdominal pain or return of his nausea and vomiting then he should return to the emergency department. 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 He has a coordinator with [facility] who is going to contact for follow-up regarding pancreatitis. All questions answered Lab Data 01/24/23 20:31 01/24/23 20:31 Laboratory Results WBC 6.72 10^3/uL (3.29-11.43) 01/24/23 20: RBC 5.29 10^6/uL (3.85-5.65) 01/24/23 20: Hgb 15.70 g/dL (11.27-16.99) 01/24/23 20: Hct 49.6 % (37-53) 01/24/23 20: MCV 93.8 fl (82-101) 01/24/23 20: MCH 29.7 pg (27-33) 01/24/23 20: MCHC 31.7 g/dL (30-55) 01/24/23 20: RDW 14.5 % (12.1-15.1) 01/24/23 20: Plt Count 171 10^3/cmm (157-399) 01/24/23 20: MPV 10.9 fL (7.4-10.4) H 01/24/23 20: Neut % (Auto) 80.1 % 01/24/23 20: Lymph % (Auto) 6.5 % 01/24/23 20: Jerome % (Auto) 10.0 % 01/24/23 20: Eos % (Auto) 0.4 % 01/24/23 20: Baso % (Auto) 0.3 % 01/24/23 20: Neut # (Auto) 5.38 10^3/uL (1.8-7.7) 01/24/23 20: Lymph # (Auto) 0.4 10^3/uL (0.8-4.8) L 01/24/23 20: Jerome # (Auto) 0.7 10^3/uL (0.2-0.9) 01/24/23 20:31 Eos # (Auto) 0.0 10^3/uL (0.0-0.8) 01/24/23 20:31 Baso # (Auto) 0.0 10^3/uL (0.0-0.1) 01/24/23 20:31 Nucleated RBC % (auto) 0 % 01/24/23 20:31 Nucleated RBCs # 0.0 /100WBC 01/24/23 20:31 Sodium 138 mmol/L (136-145) 01/24/23 20:31 Potassium 4.8 mmol/L (3.5-5.1) 01/24/23 20:31 Chloride 104 mmol/L (98-107) 01/24/23 20:31 Carbon Dioxide 18 mmol/L (22-29) L 01/24/23 20:31 Anion Gap 20.8 (5-19) H 01/24/23 20:31 BUN 29 mg/dL (8-23) H 01/24/23 20:31 Creatinine 2.1 mg/dL (0.7-1.2) H 01/24/23 20:31 GFR Calculation 31.4 mL/min (90-130) L 01/24/23 20:31 Glucose 160 mg/dL (65-115) H 01/24/23 20:31 Calculated Osmolality 295 mOsm/kg (285-295) 01/24/23 20:31 Lactic Acid 2.5 mmol/L (0.5-2.2) H 01/24/23 20:31 Calcium 10.0 mg/dL (8.5-10.5) 01/24/23 20:31 Total Bilirubin 0.4 mg/dL (0.15-1.2) 01/24/23 20:31 AST 23 U/L (0-40) 01/24/23 20:31 ALT 21 U/L (0-41) 01/24/23 20:31 Alkaline Phosphatase 75 U/L (40-130) 01/24/23 20:31 Total Protein 7.7 g/dL (6.6-8.7) 01/24/23 20:31 Albumin 4.8 g/dL (3.5-5.2) 01/24/23 20:31 Globulin 2.9 g/dL (1.3-4.6) 01/24/23 20:31 Lipase 388 U/L (13-60) H 01/24/23 20:31 Urine Color Yellow (Yellow) 01/24/23 21:21 Urine Appearance Clear (CLEAR) 01/24/23 21:21 Urine pH 5 (5-7) 01/24/23 21:21 Ur Specific [place] 1.020 (1.005-1.030) 01/24/23 21:21 Urine Protein Neg (Negative) 01/24/23 21:21 Urine Glucose (UA) Norm (Normal) 01/24/23 21:21 Urine Ketones Negative (Negative) 01/24/23 21:21 Urine Blood Neg (Negative) 01/24/23 21:21 Urine Nitrate Negative (Negative) 01/24/23 21:21 Urine Bilirubin 1+ (Negative) H 01/24/23 21:21 Urine Urobilinogen Norm mg/dL (Negative) 01/24/23 21:21 Ur Leukocyte Esterase Negative (Negative) 01/24/23 21:21 No radiology studies performed this visit Discharge Plan Discharge Patient Disposition: Home Clinical Impression: Acute pancreatitis Qualifiers: Pancreatitis type: unspecified pancreatitis type Acute pancreatitis complication: unspecified Qualified Code(s): K85.90 - Acute pancreatitis without necrosis or infection, unspecified Condition: Stable Prescriptions: New ondansetron 4 mg tablet,disintegrating 4 mg PO Q8H PRN (Reason: nausea and vomiting) 5 Days Qty: 20 0RF No Action cholecalciferol (vitamin D3) 50 mcg (2,000 unit) capsule 50 mcg PO DAILY Qty: 90 1RF aspirin 81 mg tablet,chewable 81 mg PO DAILY albuterol sulfate [Ventolin HFA] 90 mcg/actuation HFA aerosol inhaler 1 inh inhalation QID PRN (Reason: shortness of breath or wheezing) Qty: 8.5 3RF prednisone 10 mg tablet 10 mg PO DAILY pantoprazole 40 mg tablet,delayed release (DR/EC) 40 mg PO DAILY acyclovir 200 mg capsule 200 mg PO BID tacrolimus 1 mg capsule See Rx Instructions PO .COMPLEX Rx Instructions: 2 mg in AM and 1 mg in PM orally; rosuvastatin 20 mg tablet 20 mg PO DAILY metoprolol tartrate 25 mg tablet 12.5 mg PO BID fluconazole 100 mg tablet 100 mg PO DAILY calcium carbonate [Calcium 600] 600 mg calcium (1,500 mg) tablet 600 mg PO DAILY mycophenolate mofetil 500 mg tablet 1,000 mg PO BID Qty: 120 3RF Hold Instructions: Doctor's Order Discharge Orders: Discharge ED (Routine); Ordered 01/24/23 Ordered By: Amanda Kaplan Referrals: Jorge Resendiz [employer] MAINTENANCE SUPERVISOR [Primary Care Provider] - Discharge Diet: Advance as tolerated Discharge Activity: Resume usual activity Patient Instructions: Ondansetron (By mouth), Pain Management, Pancreatitis Activity Restrictions/Additional Instructions: Please follow-up with your primary care doctor and your [facility] coordinator. Take your medications as prescribed Return to the emergency department should you develop any worsening nausea and vomiting that is not controlled at home, inability to tolerate p.o. fluids Or the development of abdominal pain You need to stick to clears for the next 24 hours and then slowly increase your diet as tolerated Coding Level of Care Code ED Care Management Assistant for Brenda Rangel
[2023-01-24 20:15] VITALS: BP 113/72; O2SAT 98
[2023-01-24] MEDS: sodium chloride 0.9% 1,000 ML 999 ML IV ×2 (20:35→21:43)
[2023-01-24] MEDS: ondansetron 2 mg/ML SDV 2 mL 4 MG IVP (20:36)
[2023-01-24 20:46] LABS: Basophils % 0.3 %; Eosinophils % 0.4 %; Hematocrit 49.6 % (37-53); Lymphocytes # 0.4 10^3/uL (0.8-4.8); Lymphocytes % 6.5 %; Mean Corpuscular HGB Conc 31.7 g/dL (30-55); Mean Corpuscular Hemoglobin 29.7 pg (27-33); Mean Corpuscular Volume 93.8 fl (82-101); Mean Platelet Volume 10.9 fL (7.4-10.4); Monocytes # 0.7 10^3/uL (0.2-0.9); Neutrophils # 5.38 10^3/uL (1.8-7.7); Neutrophils % 80.1 %; Nucleated Red Blood Cells % 0 %; Platelet Count 171 10^3/cmm (157-399); Red Blood Count 5.29 10^6/uL (3.85-5.65); Red Cell Distribution Width 14.5 % (12.1-15.1); White Blood Count 6.72 10^3/uL (3.29-11.43)
[2023-01-24 21:00] VITALS: BP 127/61; PULSE 73; O2SAT 99
[2023-01-24 21:02] LABS: Lactic Sepsis W/Reflex 2.5 mmol/L (0.5-2.2)
[2023-01-24 21:03] LABS: Alanine Aminotransferase 21 U/L (0-41); Albumin Level 4.8 g/dL (3.5-5.2); Alkaline Phosphatase 75 U/L (40-130); Anion Gap 20.8 (5-19); Aspartate Amino Transferase 23 U/L (0-40); Blood Urea Nitrogen 29 mg/dL (8-23); Carbon Dioxide 18 mmol/L (22-29); Chloride 104 mmol/L (98-107); Globulin 2.9 g/dL (1.3-4.6); Glomerular Filtration Rate 31.4 mL/min (90-130); Glucose 160 mg/dL (65-115); Osmolality Calculated 295 mOsm/kg (285-295); Potassium 4.8 mmol/L (3.5-5.1); Sodium 138 mmol/L (136-145); Total Bilirubin 0.4 mg/dL (0.15-1.2); Total Protein 7.7 g/dL (6.6-8.7)
[2023-01-24 21:14] LABS: Lipase 388 U/L (13-60)
[2023-01-24 21:27] LABS: Add Urine Microscopic? NO; Charge for UA Resulting for Rev
[2023-01-24 21:46] VITALS: BP 110/67; PULSE 72; O2SAT 93
[2023-01-24 21:53] LABS: Blood Urine Neg (Negative); Glucose Urine UA Norm (Normal); Ketones Urine Negative (Negative); Protein Urine Neg (Negative); Urine Appearance Clear (CLEAR); Urine Color Yellow (Yellow); pH Urine 5 (5-7)
[2023-01-24 21:54] LABS: Bilirubin Urine 1+ (Negative); Leukocyte Esterase Urine Negative (Negative); Nitrate Urine Negative (Negative); Urobilinogen Urine Norm (Negative)
[2023-01-24] MEDS: ondansetron 4 MG Tablet PO ×2 (22:23)
[2023-01-24 22:30] LABS: Reflex Lactate Order REFLEX LACTIC ORDERD
[2023-01-24 22:31] VITALS: BP 136/60; PULSE 79; O2SAT 99
[2023-01-24 23:13] VITALS: BP 124/61; PULSE 78; O2SAT 97
== END 2023-01-24 23:13 | disposition home or self-care (01) ==
PROVIDERS: Emergency Provider Nurse Practitioner; PCP Clinical Nurse Specialist Adult Health
DX: Z79.82 Long term (current) use of aspirin (principal); Z94.2 Lung transplant status
CPT/HCPCS: 80053; 81003; 83605; 83690; 85025; 96361; 96374; 99284; J2405; J7030; Q0162

== ENCOUNTER 2023-01-27 08:10 | Outpatient (CLI) | payer MEDICARE, SELFPAY ==
[2023-01-27 08:53] LABS: Basophils % 0.2 %; Eosinophils # 0.1 10^3/uL (0.0-0.8); Eosinophils % 1.4 %; Hematocrit 37.4 % (37-53); Lymphocytes # 1.2 10^3/uL (0.8-4.8); Lymphocytes % 27.5 %; Mean Corpuscular HGB Conc 31.3 g/dL (30-55); Mean Corpuscular Hemoglobin 29.8 pg (27-33); Mean Corpuscular Volume 95.2 fl (82-101); Mean Platelet Volume 10.2 fL (7.4-10.4); Monocytes # 0.6 10^3/uL (0.2-0.9); Monocytes % 13.1 %; Neutrophils # 2.27 10^3/uL (1.8-7.7); Nucleated Red Blood Cells % 0 %; Platelet Count 132 10^3/cmm (157-399); Red Blood Count 3.93 10^6/uL (3.85-5.65); Red Cell Distribution Width 14.5 % (12.1-15.1); White Blood Count 4.44 10^3/uL (3.29-11.43)
[2023-01-27 09:14] LABS: Alanine Aminotransferase 14 U/L (0-41); Albumin Level 3.6 g/dL (3.5-5.2); Alkaline Phosphatase 66 U/L (40-130); Anion Gap 12.2 (5-19); Aspartate Amino Transferase 16 U/L (0-40); Blood Urea Nitrogen 20 mg/dL (8-23); Calcium 8.8 mg/dL (8.5-10.5); Carbon Dioxide 22 mmol/L (22-29); Chloride 106 mmol/L (98-107); Globulin 1.9 g/dL (1.3-4.6); Glomerular Filtration Rate 54.6 mL/min (90-130); Glucose 104 mg/dL (65-115); Osmolality Calculated 285 mOsm/kg (285-295); Potassium 4.2 mmol/L (3.5-5.1); Sodium 136 mmol/L (136-145); Total Bilirubin 0.4 mg/dL (0.15-1.2); Total Protein 5.5 g/dL (6.6-8.7)
[2023-01-27 10:00] LABS: Neutrophils % 57.8 %; Slide Review Slide Review Perform
--- NOTE | 2023-01-27 11:15 | XR_ITS ---
WS: [id number] PA and lateral chest, 01/27/2023 Clinical Data: Post lung transparent Comparison: Two-view chest, 12/30/2022 Findings: No nodules, masses or effusions are seen. The heart is normal. The aortic arch shows tortuo sity. There is a hiatal hernia behind the heart. There are midline sternotomy sutures. No pneumonia o r pneumothorax is seen. Impression: Atherosclerosis and hiatal hernia.
== END 2023-01-27 08:11 | disposition home or self-care (01) ==
LOC: LAB 08:13
PROVIDERS: PCP Clinical Nurse Specialist Adult Health; Visit Provider Internal Medicine Pulmonary Disease
DX: Z94.2 Lung transplant status (principal); I70.90 Unspecified atherosclerosis; K44.9 Diaphragmatic hernia without obstruction or gangrene
CPT/HCPCS: 36415; 71046; 80053; 80197; 85025

== ENCOUNTER → 2023-01-31 12:40 | Outpatient (BNVA) | payer MEDICARE, SELFPAY | PROVIDERS: PCP Clinical Nurse Specialist Adult Health; Visit Provider Internal Medicine Pulmonary Disease | DX: K85.90 Acute pancreatitis without necrosis or infection, unspecified (principal); Z94.2 Lung transplant status | CPT/HCPCS: 36415; 83690; 99214 ==

== ENCOUNTER → 2023-02-11 13:37 | Outpatient (BNVA) | payer MEDICARE, SELFPAY | PROVIDERS: PCP Clinical Nurse Specialist Adult Health; Visit Provider Nurse Practitioner Family | DX: L57.0 Actinic keratosis (principal); L57.8 Other skin changes due to chronic exposure to nonionizing radiation; L81.4 Other melanin hyperpigmentation; Z85.828 Personal history of other malignant neoplasm of skin; Z85.820 Personal history of malignant melanoma of skin | CPT/HCPCS: 17000; 99214 ==

== ENCOUNTER 2023-02-12 08:02 | Outpatient (CLI) | payer MEDICARE, SELFPAY ==
[2023-02-12 08:37] LABS: Basophils % 0.2 %; Eosinophils % 0.9 %; Hematocrit 38.9 % (37-53); Lymphocytes # 1.1 10^3/uL (0.8-4.8); Lymphocytes % 25.1 %; Mean Corpuscular HGB Conc 32.1 g/dL (30-55); Mean Corpuscular Volume 93.5 fl (82-101); Mean Platelet Volume 10.5 fL (7.4-10.4); Monocytes # 0.5 10^3/uL (0.2-0.9); Monocytes % 11.5 %; Neutrophils # 2.72 10^3/uL (1.8-7.7); Neutrophils % 59.9 %; Nucleated Red Blood Cells % 0 %; Platelet Count 149 10^3/cmm (157-399); Red Blood Count 4.16 10^6/uL (3.85-5.65); Red Cell Distribution Width 15.2 % (12.1-15.1); White Blood Count 4.54 10^3/uL (3.29-11.43)
[2023-02-12 08:55] LABS: Alanine Aminotransferase 20 U/L (0-41); Albumin Level 3.6 g/dL (3.5-5.2); Alkaline Phosphatase 57 U/L (40-130); Anion Gap 13.2 (5-19); Aspartate Amino Transferase 17 U/L (0-40); Blood Urea Nitrogen 24 mg/dL (8-23); Calcium 8.6 mg/dL (8.5-10.5); Carbon Dioxide 20 mmol/L (22-29); Chloride 111 mmol/L (98-107); Globulin 1.8 g/dL (1.3-4.6); Glomerular Filtration Rate 54.6 mL/min (90-130); Glucose 105 mg/dL (65-115); Osmolality Calculated 294 mOsm/kg (285-295); Potassium 4.2 mmol/L (3.5-5.1); Sodium 140 mmol/L (136-145); Total Bilirubin 0.4 mg/dL (0.15-1.2); Total Protein 5.4 g/dL (6.6-8.7)
== END 2023-02-12 08:03 | disposition home or self-care (01) ==
PROVIDERS: PCP Clinical Nurse Specialist Adult Health; Visit Provider Internal Medicine Pulmonary Disease
DX: Z48.24 Encounter for aftercare following lung transplant (principal)
CPT/HCPCS: 36415; 80053; 80197; 85025

== ENCOUNTER 2023-02-17 08:36 | Outpatient (CLI) | payer MEDICARE, SELFPAY ==
[2023-02-18 16:29] LABS: Clostridium Difficile PCR NOT DETECTED (NOT DETECTED)
[2023-02-21 21:29] LABS: Pancreatic Elastase-1 >500 mcg/g
== END 2023-02-17 08:37 | disposition home or self-care (01) ==
LOC: LAB 08:38
PROVIDERS: PCP Clinical Nurse Specialist Adult Health; Visit Provider Specialist
DX: Z48.24 Encounter for aftercare following lung transplant (principal); R19.7 Diarrhea, unspecified
CPT/HCPCS: 83520; 87493

== ENCOUNTER 2023-02-20 08:25 | Outpatient (CLI) | payer MEDICARE, SELFPAY ==
[2023-02-20 08:44] LABS: Basophils % 0.2 %; Eosinophils # 0.1 10^3/uL (0.0-0.8); Eosinophils % 2.4 %; Hematocrit 37.5 % (37-53); Lymphocytes # 1.3 10^3/uL (0.8-4.8); Lymphocytes % 30.4 %; Mean Corpuscular Volume 93.8 fl (82-101); Mean Platelet Volume 10.8 fL (7.4-10.4); Monocytes # 0.5 10^3/uL (0.2-0.9); Monocytes % 10.8 %; Neutrophils # 2.24 10^3/uL (1.8-7.7); Neutrophils % 53.6 %; Nucleated Red Blood Cells % 0 %; Platelet Count 127 10^3/cmm (157-399); Red Cell Distribution Width 14.9 % (12.1-15.1); White Blood Count 4.18 10^3/uL (3.29-11.43)
[2023-02-20 09:07] LABS: Alanine Aminotransferase 17 U/L (0-41); Albumin Level 3.6 g/dL (3.5-5.2); Alkaline Phosphatase 58 U/L (40-130); Anion Gap 13.8 (5-19); Aspartate Amino Transferase 16 U/L (0-40); Blood Urea Nitrogen 19 mg/dL (8-23); Calcium 8.3 mg/dL (8.5-10.5); Carbon Dioxide 21 mmol/L (22-29); Chloride 110 mmol/L (98-107); Glomerular Filtration Rate 59.9 mL/min (90-130); Glucose 111 mg/dL (65-115); Osmolality Calculated 295 mOsm/kg (285-295); Potassium 3.8 mmol/L (3.5-5.1); Sodium 141 mmol/L (136-145); Total Bilirubin 0.4 mg/dL (0.15-1.2); Total Protein 5.6 g/dL (6.6-8.7)
== END 2023-02-20 08:26 | disposition home or self-care (01) ==
LOC: LAB 08:28
PROVIDERS: PCP Clinical Nurse Specialist Adult Health; Visit Provider Internal Medicine
DX: Z48.24 Encounter for aftercare following lung transplant (principal)
CPT/HCPCS: 36415; 80053; 80197; 85025

== ENCOUNTER → 2023-03-11 14:49 | Outpatient (BNVA) | payer MEDICARE, SELFPAY | PROVIDERS: PCP Clinical Nurse Specialist Adult Health; Visit Provider Internal Medicine Pulmonary Disease | DX: J84.9 Interstitial pulmonary disease, unspecified (principal); J45.20 Mild intermittent asthma, uncomplicated | CPT/HCPCS: 99214 ==

== ENCOUNTER 2023-03-12 11:48 | Outpatient (CLI) | payer MEDICARE, SELFPAY | END 2023-03-12 11:49 | disposition home or self-care (01) | LOC: RT 11:49 | PROVIDERS: PCP Clinical Nurse Specialist Adult Health; Visit Provider Internal Medicine Pulmonary Disease | DX: Z94.2 Lung transplant status (principal) | CPT/HCPCS: 94010 ==

== ENCOUNTER 2023-04-24 08:12 | Outpatient (CLI) | payer MEDICARE, SELFPAY ==
[2023-04-24 09:33] LABS: Basophils % 0.3 %; Eosinophils # 0.1 10^3/uL (0.0-0.8); Eosinophils % 1.8 %; Hematocrit 38.8 % (37-53); Lymphocytes # 1.6 10^3/uL (0.8-4.8); Lymphocytes % 50.2 %; Mean Corpuscular HGB Conc 30.4 g/dL (30-55); Mean Corpuscular Hemoglobin 28.4 pg (27-33); Mean Corpuscular Volume 93.5 fl (82-101); Mean Platelet Volume 11.2 fL (7.4-10.4); Monocytes # 0.2 10^3/uL (0.2-0.9); Monocytes % 4.6 %; Neutrophils # 1.27 10^3/uL (1.8-7.7); Neutrophils % 38.8 %; Nucleated Red Blood Cells % 0 %; Platelet Count 133 10^3/cmm (157-399); Red Blood Count 4.15 10^6/uL (3.85-5.65); Red Cell Distribution Width 12.9 % (12.1-15.1); White Blood Count 3.27 10^3/uL (3.29-11.43)
[2023-04-24 09:53] LABS: Alanine Aminotransferase 35 U/L (0-41); Albumin Level 3.7 g/dL (3.5-5.2); Alkaline Phosphatase 92 U/L (40-130); Anion Gap 11.4 (5-19); Aspartate Amino Transferase 30 U/L (0-40); Blood Urea Nitrogen 22 mg/dL (8-23); Calcium 8.6 mg/dL (8.5-10.5); Carbon Dioxide 27 mmol/L (22-29); Chloride 109 mmol/L (98-107); Globulin 1.7 g/dL (1.3-4.6); Glomerular Filtration Rate 59.9 mL/min (90-130); Glucose 94 mg/dL (65-115); Osmolality Calculated 299 mOsm/kg (285-295); Potassium 4.4 mmol/L (3.5-5.1); Sodium 143 mmol/L (136-145); Total Bilirubin 0.3 mg/dL (0.15-1.2); Total Protein 5.4 g/dL (6.6-8.7)
[2023-04-27 15:35] LABS: CMV DNA By PCR NOT DETECTED; CMV DNA, QN PCR NOT DETECTED Log IU/mL; SOURCE WHOLE BLOOD
== END 2023-04-24 08:13 | disposition home or self-care (01) ==
LOC: LAB 08:13
PROVIDERS: PCP Clinical Nurse Specialist Adult Health; Visit Provider Internal Medicine
DX: Z48.24 Encounter for aftercare following lung transplant (principal); Z51.81 Encounter for therapeutic drug level monitoring
CPT/HCPCS: 36415; 80053; 80197; 85025; 87496

== ENCOUNTER 2023-05-07 08:19 | Outpatient (CLI) | payer MEDICARE, SELFPAY ==
[2023-05-07 08:52] LABS: Basophils % 0.2 %; Eosinophils % 0.8 %; Hematocrit 39.7 % (37-53); Lymphocytes # 1.7 10^3/uL (0.8-4.8); Lymphocytes % 36.6 %; Mean Corpuscular HGB Conc 30.2 g/dL (30-55); Mean Corpuscular Hemoglobin 28.3 pg (27-33); Mean Corpuscular Volume 93.6 fl (82-101); Mean Platelet Volume 10.6 fL (7.4-10.4); Monocytes # 0.8 10^3/uL (0.2-0.9); Monocytes % 15.9 %; Neutrophils # 2.01 10^3/uL (1.8-7.7); Neutrophils % 42.5 %; Nucleated Red Blood Cells % 0 %; Platelet Count 136 10^3/cmm (157-399); Red Blood Count 4.24 10^6/uL (3.85-5.65); Red Cell Distribution Width 12.8 % (12.1-15.1); White Blood Count 4.73 10^3/uL (3.29-11.43)
[2023-05-07 09:06] LABS: Alanine Aminotransferase 17 U/L (0-41); Albumin Level 3.6 g/dL (3.5-5.2); Alkaline Phosphatase 77 U/L (40-130); Anion Gap 12.4 (5-19); Aspartate Amino Transferase 18 U/L (0-40); Blood Urea Nitrogen 24 mg/dL (8-23); Calcium 8.7 mg/dL (8.5-10.5); Carbon Dioxide 26 mmol/L (22-29); Chloride 106 mmol/L (98-107); Globulin 2.2 g/dL (1.3-4.6); Glomerular Filtration Rate 59.9 mL/min (90-130); Glucose 98 mg/dL (65-115); Osmolality Calculated 294 mOsm/kg (285-295); Potassium 4.4 mmol/L (3.5-5.1); Sodium 140 mmol/L (136-145); Total Bilirubin 0.3 mg/dL (0.15-1.2); Total Protein 5.8 g/dL (6.6-8.7)
[2023-05-11 05:50] LABS: CMV DNA By PCR NOT DETECTED; CMV DNA, QN PCR NOT DETECTED Log IU/mL; SOURCE WHOLE BLOOD
== END 2023-05-07 08:20 | disposition home or self-care (01) ==
LOC: LAB 08:25
PROVIDERS: PCP Clinical Nurse Specialist Adult Health; Visit Provider Internal Medicine
DX: Z48.24 Encounter for aftercare following lung transplant (principal); Z79.899 Other long term (current) drug therapy
CPT/HCPCS: 36415; 80053; 80197; 85025; 87496

== ENCOUNTER 2023-05-19 09:37 | Outpatient (CLI) | payer MEDICARE, SELFPAY ==
[2023-05-19 10:41] LABS: Basophils % 0.2 %; Eosinophils % 0.8 %; Hematocrit 39.9 % (37-53); Lymphocytes # 2.8 10^3/uL (0.8-4.8); Lymphocytes % 54.4 %; Mean Corpuscular HGB Conc 30.6 g/dL (30-55); Mean Corpuscular Hemoglobin 28.2 pg (27-33); Mean Corpuscular Volume 92.1 fl (82-101); Mean Platelet Volume 11.1 fL (7.4-10.4); Monocytes % 18.5 %; Neutrophils # 1.33 10^3/uL (1.8-7.7); Neutrophils % 25.7 %; Nucleated Red Blood Cells % 0 %; Platelet Count 165 10^3/cmm (157-399); Red Blood Count 4.33 10^6/uL (3.85-5.65); White Blood Count 5.18 10^3/uL (3.29-11.43)
[2023-05-19 10:52] LABS: Alanine Aminotransferase 18 U/L (0-41); Albumin Level 3.8 g/dL (3.5-5.2); Alkaline Phosphatase 77 U/L (40-130); Anion Gap 12.5 (5-19); Aspartate Amino Transferase 18 U/L (0-40); Blood Urea Nitrogen 20 mg/dL (8-23); Calcium 8.8 mg/dL (8.5-10.5); Carbon Dioxide 23 mmol/L (22-29); Chloride 109 mmol/L (98-107); Globulin 2.3 g/dL (1.3-4.6); Glomerular Filtration Rate 59.9 mL/min (90-130); Glucose 109 mg/dL (65-115); Osmolality Calculated 293 mOsm/kg (285-295); Potassium 4.5 mmol/L (3.5-5.1); Sodium 140 mmol/L (136-145); Total Bilirubin 0.3 mg/dL (0.15-1.2); Total Protein 6.1 g/dL (6.6-8.7)
== END 2023-05-19 09:38 | disposition home or self-care (01) ==
LOC: LAB 09:40
PROVIDERS: Absent Provider Internal Medicine; PCP Clinical Nurse Specialist Adult Health; Visit Provider Internal Medicine Pulmonary Disease
DX: Z48.24 Encounter for aftercare following lung transplant (principal)
CPT/HCPCS: 36415; 80053; 80197; 85025

== ENCOUNTER 2023-05-22 11:10 | Outpatient (CLI) | payer MEDICARE, SELFPAY | END 2023-05-22 11:11 | disposition home or self-care (01) | LOC: RT 11:11 | PROVIDERS: PCP Clinical Nurse Specialist Adult Health; Visit Provider Internal Medicine Pulmonary Disease | DX: Z94.2 Lung transplant status (principal) | CPT/HCPCS: 94010 ==

== ENCOUNTER 2023-05-26 08:36 | Outpatient (CLI) | payer MEDICARE, SELFPAY ==
[2023-05-26 09:19] LABS: Basophils % 0.1 %; Eosinophils % 0.3 %; Hematocrit 40.7 % (37-53); Lymphocytes # 2.7 10^3/uL (0.8-4.8); Lymphocytes % 29.8 %; Mean Corpuscular HGB Conc 30.2 g/dL (30-55); Mean Corpuscular Hemoglobin 27.7 pg (27-33); Mean Corpuscular Volume 91.7 fl (82-101); Mean Platelet Volume 11.1 fL (7.4-10.4); Monocytes # 0.9 10^3/uL (0.2-0.9); Monocytes % 9.4 %; Neutrophils # 5.39 10^3/uL (1.8-7.7); Neutrophils % 59.6 %; Nucleated Red Blood Cells % 0 %; Platelet Count 148 10^3/cmm (157-399); Red Blood Count 4.44 10^6/uL (3.85-5.65); Red Cell Distribution Width 13.2 % (12.1-15.1); White Blood Count 9.05 10^3/uL (3.29-11.43)
[2023-05-26 09:36] LABS: Alanine Aminotransferase 15 U/L (0-41); Albumin Level 3.8 g/dL (3.5-5.2); Alkaline Phosphatase 74 U/L (40-130); Anion Gap 10.8 (5-19); Aspartate Amino Transferase 18 U/L (0-40); Blood Urea Nitrogen 23 mg/dL (8-23); Calcium 8.9 mg/dL (8.5-10.5); Carbon Dioxide 25 mmol/L (22-29); Chloride 109 mmol/L (98-107); Globulin 2.4 g/dL (1.3-4.6); Glomerular Filtration Rate 59.9 mL/min (90-130); Glucose 113 mg/dL (65-115); Osmolality Calculated 294 mOsm/kg (285-295); Potassium 4.8 mmol/L (3.5-5.1); Sodium 140 mmol/L (136-145); Total Bilirubin 0.3 mg/dL (0.15-1.2); Total Protein 6.2 g/dL (6.6-8.7)
== END 2023-05-26 08:37 | disposition home or self-care (01) ==
LOC: LAB 08:38
PROVIDERS: PCP Clinical Nurse Specialist Adult Health; Visit Provider Internal Medicine
DX: Z48.24 Encounter for aftercare following lung transplant (principal)
CPT/HCPCS: 36415; 80053; 80197; 85025

== ENCOUNTER → 2023-06-10 13:04 | Outpatient (BNVA) | payer MEDICARE, SELFPAY | PROVIDERS: PCP Clinical Nurse Specialist Adult Health; Visit Provider Internal Medicine Pulmonary Disease | DX: J84.9 Interstitial pulmonary disease, unspecified (principal); J45.20 Mild intermittent asthma, uncomplicated; Z94.2 Lung transplant status | CPT/HCPCS: 99214 ==

== ENCOUNTER 2023-06-18 13:13 | Outpatient (CLI) | payer MEDICARE, SELFPAY | END 2023-06-18 13:14 | disposition home or self-care (01) | LOC: RT 13:15 | PROVIDERS: PCP Clinical Nurse Specialist Adult Health; Visit Provider Internal Medicine Pulmonary Disease | DX: Z94.89 Other transplanted organ and tissue status (principal) | CPT/HCPCS: 94010 ==

== ENCOUNTER 2023-07-31 08:11 | Outpatient (RCR) | payer MEDICARE, SELFPAY ==
[2023-07-31 09:45] LABS: Basophils % 0.2 %; Eosinophils % 0.2 %; Hematocrit 38.6 % (37-53); Lymphocytes # 0.1 10^3/uL (0.8-4.8); Mean Corpuscular HGB Conc 30.8 g/dL (30-55); Mean Corpuscular Hemoglobin 25.4 pg (27-33); Mean Corpuscular Volume 82.3 fl (82-101); Mean Platelet Volume 11.6 fL (7.4-10.4); Monocytes # 0.4 10^3/uL (0.2-0.9); Monocytes % 9.8 %; Neutrophils # 3.75 10^3/uL (1.8-7.7); Neutrophils % 85.3 %; Nucleated Red Blood Cells % 0 %; Platelet Count 142 10^3/cmm (157-399); Red Blood Count 4.69 10^6/uL (3.85-5.65); Red Cell Distribution Width 15.5 % (12.1-15.1)
[2023-07-31 10:17] LABS: Alanine Aminotransferase 43 U/L (0-41); Albumin Level 3.6 g/dL (3.5-5.2); Alkaline Phosphatase 68 U/L (40-130); Anion Gap 12.8 (5-19); Aspartate Amino Transferase 23 U/L (0-40); Blood Urea Nitrogen 39 mg/dL (8-23); Calcium 8.5 mg/dL (8.5-10.5); Carbon Dioxide 22 mmol/L (22-29); Chloride 109 mmol/L (98-107); Glomerular Filtration Rate 59.9 mL/min (90-130); Glucose 117 mg/dL (65-115); Osmolality Calculated 298 mOsm/kg (285-295); Potassium 4.8 mmol/L (3.5-5.1); Sodium 139 mmol/L (136-145); Total Bilirubin 0.4 mg/dL (0.15-1.2); Total Protein 5.6 g/dL (6.6-8.7)
[2023-08-04 14:19] LABS: CMV DNA By PCR NOT DETECTED; CMV DNA, QN PCR NOT DETECTED Log IU/mL; SOURCE WHOLE BLOOD
== END 2023-08-10 23:59 | disposition home or self-care (01) ==
LOC: LAB 08:11
PROVIDERS: PCP Clinical Nurse Specialist Adult Health; Visit Provider Internal Medicine
DX: Z48.24 Encounter for aftercare following lung transplant (principal); Z79.899 Other long term (current) drug therapy
CPT/HCPCS: 36415; 80053; 80197; 85025; 87496

== ENCOUNTER 2023-08-07 08:18 | Outpatient (CLI) | payer MEDICARE, SELFPAY ==
[2023-08-07 09:36] LABS: Alanine Aminotransferase 44 U/L (0-41); Albumin Level 3.3 g/dL (3.5-5.2); Alkaline Phosphatase 74 U/L (40-130); Anion Gap 11.9 (5-19); Aspartate Amino Transferase 26 U/L (0-40); Blood Urea Nitrogen 29 mg/dL (8-23); Calcium 8.2 mg/dL (8.5-10.5); Carbon Dioxide 24 mmol/L (22-29); Chloride 109 mmol/L (98-107); Globulin 1.9 g/dL (1.3-4.6); Glomerular Filtration Rate 59.9 mL/min (90-130); Glucose 108 mg/dL (65-115); Osmolality Calculated 296 mOsm/kg (285-295); Potassium 4.9 mmol/L (3.5-5.1); Sodium 140 mmol/L (136-145); Total Bilirubin 0.6 mg/dL (0.15-1.2); Total Protein 5.2 g/dL (6.6-8.7)
[2023-08-07 10:18] LABS: Eosinophils % 0.3 %; Hematocrit 39.2 % (37-53); Lymphocytes # 0.4 10^3/uL (0.8-4.8); Lymphocytes % 12.3 %; Mean Corpuscular HGB Conc 30.9 g/dL (30-55); Mean Corpuscular Volume 84.3 fl (82-101); Mean Platelet Volume 10.7 fL (7.4-10.4); Monocytes # 0.2 10^3/uL (0.2-0.9); Monocytes % 6.8 %; Neutrophils # 2.31 10^3/uL (1.8-7.7); Neutrophils % 79.2 %; Nucleated Red Blood Cells % 0 %; Platelet Count 104 10^3/cmm (157-399); Red Blood Count 4.65 10^6/uL (3.85-5.65); Red Cell Distribution Width 16.4 % (12.1-15.1); White Blood Count 2.92 10^3/uL (3.29-11.43)
[2023-08-10 15:54] LABS: CMV DNA By PCR NOT DETECTED; CMV DNA, QN PCR NOT DETECTED Log IU/mL; SOURCE WHOLE BLOOD
== END 2023-08-07 08:19 | disposition home or self-care (01) ==
LOC: LAB 08:19
PROVIDERS: PCP Clinical Nurse Specialist Adult Health; Visit Provider Internal Medicine
DX: Z48.24 Encounter for aftercare following lung transplant (principal)
CPT/HCPCS: 36415; 80053; 80197; 85025; 87496

== ENCOUNTER → 2023-08-12 14:22 | Outpatient (BNVA) | payer MEDICARE, SELFPAY | PROVIDERS: PCP Clinical Nurse Specialist Adult Health; Visit Provider Nurse Practitioner Family | DX: D48.5 Neoplasm of uncertain behavior of skin (principal); Z85.828 Personal history of other malignant neoplasm of skin; Z85.820 Personal history of malignant melanoma of skin; L81.4 Other melanin hyperpigmentation; L57.8 Other skin changes due to chronic exposure to nonionizing radiation | CPT/HCPCS: 11102; 17000; 69100; 99213 ==

== ENCOUNTER 2023-08-13 08:20 | Outpatient (CLI) | payer MEDICARE, SELFPAY ==
[2023-08-13 08:47] LABS: Basophils % 0.7 %; Hematocrit 40.6 % (37-53); Lymphocytes # 0.6 10^3/uL (0.8-4.8); Lymphocytes % 41.9 %; Mean Corpuscular HGB Conc 30.8 g/dL (30-55); Mean Corpuscular Volume 84.6 fl (82-101); Mean Platelet Volume 10.3 fL (7.4-10.4); Monocytes # 0.2 10^3/uL (0.2-0.9); Monocytes % 10.8 %; Neutrophils % 42.6 %; Nucleated Red Blood Cells % 0 %; Platelet Count 85 10^3/cmm (157-399); Red Cell Distribution Width 16.8 % (12.1-15.1); White Blood Count 1.48 10^3/uL (3.29-11.43)
[2023-08-13 09:05] LABS: Alanine Aminotransferase 30 U/L (0-41); Albumin Level 3.3 g/dL (3.5-5.2); Alkaline Phosphatase 64 U/L (40-130); Aspartate Amino Transferase 18 U/L (0-40); Blood Urea Nitrogen 17 mg/dL (8-23); Calcium 8.3 mg/dL (8.5-10.5); Carbon Dioxide 25 mmol/L (22-29); Chloride 106 mmol/L (98-107); Globulin 2.3 g/dL (1.3-4.6); Glomerular Filtration Rate 66.2 mL/min (90-130); Glucose 97 mg/dL (65-115); Osmolality Calculated 289 mOsm/kg (285-295); Sodium 139 mmol/L (136-145); Total Bilirubin 0.5 mg/dL (0.15-1.2); Total Protein 5.6 g/dL (6.6-8.7)
[2023-08-13 09:08] LABS: Neutrophils # 0.63 10^3/uL (1.8-7.7)
[2023-08-17 05:54] LABS: CMV DNA By PCR NOT DETECTED; CMV DNA, QN PCR NOT DETECTED Log IU/mL; SOURCE WHOLE BLOOD
== END 2023-08-13 08:21 | disposition home or self-care (01) ==
LOC: LAB 08:22
PROVIDERS: PCP Clinical Nurse Specialist Adult Health; Visit Provider Internal Medicine
DX: Z48.24 Encounter for aftercare following lung transplant (principal)
CPT/HCPCS: 36415; 80053; 80197; 85025; 87496

== ENCOUNTER 2023-08-20 08:15 | Outpatient (CLI) | payer MEDICARE, SELFPAY ==
[2023-08-20 08:39] LABS: Basophils % 0.5 %; Eosinophils # 0.1 10^3/uL (0.0-0.8); Eosinophils % 4.1 %; Hematocrit 38.5 % (37-53); Lymphocytes # 0.8 10^3/uL (0.8-4.8); Mean Corpuscular HGB Conc 31.4 g/dL (30-55); Mean Corpuscular Hemoglobin 26.2 pg (27-33); Mean Corpuscular Volume 83.5 fl (82-101); Mean Platelet Volume 11.2 fL (7.4-10.4); Monocytes # 0.5 10^3/uL (0.2-0.9); Monocytes % 20.5 %; Neutrophils % 38.5 %; Nucleated Red Blood Cells % 0 %; Platelet Count 84 10^3/cmm (157-399); Red Blood Count 4.61 10^6/uL (3.85-5.65); Red Cell Distribution Width 16.7 % (12.1-15.1)
[2023-08-20 09:07] LABS: Neutrophils # 0.85 10^3/uL (1.8-7.7)
== END 2023-08-20 08:16 | disposition home or self-care (01) ==
LOC: LAB 08:16
PROVIDERS: PCP Clinical Nurse Specialist Adult Health; Visit Provider Internal Medicine
DX: Z48.24 Encounter for aftercare following lung transplant (principal)
CPT/HCPCS: 36415; 85025; 87496

== ENCOUNTER 2023-09-01 08:20 | Outpatient (CLI) | payer MEDICARE, SELFPAY ==
[2023-09-01 08:50] LABS: Basophils % 0.3 %; Eosinophils # 0.1 10^3/uL (0.0-0.8); Eosinophils % 1.4 %; Hematocrit 42.4 % (37-53); Lymphocytes % 28.4 %; Mean Corpuscular HGB Conc 30.4 g/dL (30-55); Mean Corpuscular Hemoglobin 25.6 pg (27-33); Mean Corpuscular Volume 84.1 fl (82-101); Mean Platelet Volume 11.2 fL (7.4-10.4); Monocytes # 0.9 10^3/uL (0.2-0.9); Monocytes % 23.9 %; Neutrophils # 1.62 10^3/uL (1.8-7.7); Neutrophils % 45.4 %; Nucleated Red Blood Cells % 0 %; Platelet Count 96 10^3/cmm (157-399); Red Blood Count 5.04 10^6/uL (3.85-5.65); Red Cell Distribution Width 16.6 % (12.1-15.1); White Blood Count 3.56 10^3/uL (3.29-11.43)
[2023-09-01 09:05] LABS: Alanine Aminotransferase 20 U/L (0-41); Albumin Level 3.6 g/dL (3.5-5.2); Alkaline Phosphatase 73 U/L (40-130); Aspartate Amino Transferase 20 U/L (0-40); Blood Urea Nitrogen 23 mg/dL (8-23); Calcium 8.8 mg/dL (8.5-10.5); Carbon Dioxide 25 mmol/L (22-29); Chloride 109 mmol/L (98-107); Globulin 2.4 g/dL (1.3-4.6); Glomerular Filtration Rate 59.9 mL/min (90-130); Glucose 102 mg/dL (65-115); Osmolality Calculated 298 mOsm/kg (285-295); Sodium 142 mmol/L (136-145); Total Bilirubin 0.4 mg/dL (0.15-1.2)
[2023-09-01 09:08] LABS: Anion Gap 12.7 (5-19); Potassium 4.7 mmol/L (3.5-5.1)
== END 2023-09-01 08:21 | disposition home or self-care (01) ==
LOC: LAB 08:24
PROVIDERS: PCP Clinical Nurse Specialist Adult Health
DX: Z48.24 Encounter for aftercare following lung transplant (principal)
CPT/HCPCS: 36415; 80053; 80197; 85025; 87496

== ENCOUNTER 2023-09-10 08:16 | Outpatient (CLI) | payer MEDICARE, SELFPAY ==
[2023-09-10 08:41] LABS: Basophils % 0.3 %; Eosinophils # 0.1 10^3/uL (0.0-0.8); Lymphocytes # 1.2 10^3/uL (0.8-4.8); Lymphocytes % 30.9 %; Mean Corpuscular Hemoglobin 25.9 pg (27-33); Mean Corpuscular Volume 83.8 fl (82-101); Mean Platelet Volume 11.4 fL (7.4-10.4); Monocytes # 0.9 10^3/uL (0.2-0.9); Monocytes % 22.6 %; Neutrophils # 1.69 10^3/uL (1.8-7.7); Neutrophils % 42.4 %; Nucleated Red Blood Cells % 0 %; Platelet Count 82 10^3/cmm (157-399); Red Blood Count 5.01 10^6/uL (3.85-5.65); Red Cell Distribution Width 16.3 % (12.1-15.1); White Blood Count 3.98 10^3/uL (3.29-11.43)
[2023-09-10 08:53] LABS: Alanine Aminotransferase 16 U/L (0-41); Albumin Level 3.8 g/dL (3.5-5.2); Alkaline Phosphatase 73 U/L (40-130); Anion Gap 12.9 (5-19); Aspartate Amino Transferase 15 U/L (0-40); Blood Urea Nitrogen 25 mg/dL (8-23); Calcium 8.7 mg/dL (8.5-10.5); Carbon Dioxide 24 mmol/L (22-29); Chloride 110 mmol/L (98-107); Globulin 2.5 g/dL (1.3-4.6); Glomerular Filtration Rate 50.1 mL/min (90-130); Glucose 100 mg/dL (65-115); Osmolality Calculated 298 mOsm/kg (285-295); Potassium 4.9 mmol/L (3.5-5.1); Sodium 142 mmol/L (136-145); Total Bilirubin 0.3 mg/dL (0.15-1.2); Total Protein 6.3 g/dL (6.6-8.7)
[2023-09-16 08:55] LABS: CMV DNA By PCR NOT DETECTED; CMV DNA, QN PCR NOT DETECTED Log IU/mL; SOURCE WHOLE BLOOD
== END 2023-09-10 08:17 | disposition home or self-care (01) ==
LOC: LAB 08:19
PROVIDERS: PCP Clinical Nurse Specialist Adult Health; Visit Provider Internal Medicine
DX: Z48.24 Encounter for aftercare following lung transplant (principal)
CPT/HCPCS: 36415; 80053; 80197; 85025; 87496

== ENCOUNTER 2023-10-02 08:31 | Outpatient (CLI) | payer MEDICARE, SELFPAY ==
[2023-10-02 09:35] LABS: Basophils % 0.3 %; Eosinophils # 0.2 10^3/uL (0.0-0.8); Eosinophils % 2.4 %; Hematocrit 41.2 % (37-53); Lymphocytes # 1.7 10^3/uL (0.8-4.8); Lymphocytes % 26.6 %; Mean Corpuscular HGB Conc 30.8 g/dL (30-55); Mean Corpuscular Hemoglobin 25.8 pg (27-33); Mean Corpuscular Volume 83.6 fl (82-101); Monocytes # 0.9 10^3/uL (0.2-0.9); Monocytes % 13.7 %; Neutrophils # 3.49 10^3/uL (1.8-7.7); Neutrophils % 56.4 %; Nucleated Red Blood Cells % 0 %; Platelet Count 82 10^3/cmm (157-399); Red Blood Count 4.93 10^6/uL (3.85-5.65); Red Cell Distribution Width 15.4 % (12.1-15.1)
[2023-10-02 10:02] LABS: Alanine Aminotransferase 14 U/L (0-41); Albumin Level 3.9 g/dL (3.5-5.2); Alkaline Phosphatase 65 U/L (40-130); Anion Gap 13.2 (5-19); Aspartate Amino Transferase 15 U/L (0-40); Blood Urea Nitrogen 32 mg/dL (8-23); Calcium 9.1 mg/dL (8.5-10.5); Carbon Dioxide 23 mmol/L (22-29); Chloride 106 mmol/L (98-107); Globulin 2.4 g/dL (1.3-4.6); Glomerular Filtration Rate 50.1 mL/min (90-130); Glucose 97 mg/dL (65-115); Osmolality Calculated 293 mOsm/kg (285-295); Potassium 4.2 mmol/L (3.5-5.1); Sodium 138 mmol/L (136-145); Total Bilirubin 0.5 mg/dL (0.15-1.2); Total Protein 6.3 g/dL (6.6-8.7)
== END 2023-10-02 08:32 | disposition home or self-care (01) ==
PROVIDERS: PCP Clinical Nurse Specialist Adult Health; Visit Provider Internal Medicine
DX: Z48.24 Encounter for aftercare following lung transplant (principal)
CPT/HCPCS: 36415; 80053; 80197; 85025

== ENCOUNTER 2023-11-27 08:49 | Outpatient (CLI) | payer MEDICARE, SELFPAY ==
[2023-11-27 09:17] LABS: Basophils % 0.2 %; Eosinophils # 0.1 10^3/uL (0.0-0.8); Eosinophils % 1.1 %; Hematocrit 41.3 % (37-53); Lymphocytes # 1.4 10^3/uL (0.8-4.8); Lymphocytes % 24.2 %; Mean Corpuscular HGB Conc 30.5 g/dL (30-55); Mean Corpuscular Hemoglobin 25.5 pg (27-33); Mean Corpuscular Volume 83.4 fl (82-101); Mean Platelet Volume 11.2 fL (7.4-10.4); Monocytes # 0.7 10^3/uL (0.2-0.9); Monocytes % 12.7 %; Neutrophils # 3.41 10^3/uL (1.8-7.7); Neutrophils % 60.4 %; Nucleated Red Blood Cells % 0 %; Platelet Count 79 10^3/cmm (157-399); Red Blood Count 4.95 10^6/uL (3.85-5.65); Red Cell Distribution Width 16.4 % (12.1-15.1); White Blood Count 5.65 10^3/uL (3.29-11.43)
== END 2023-11-27 08:50 | disposition home or self-care (01) ==
PROVIDERS: Visit Provider Internal Medicine
DX: Z48.24 Encounter for aftercare following lung transplant (principal)
CPT/HCPCS: 36415; 85025

== ENCOUNTER 2023-12-04 08:25 | Outpatient (CLI) | payer MEDICARE, SELFPAY ==
[2023-12-04 08:47] LABS: Basophils % 0.2 %; Eosinophils # 0.1 10^3/uL (0.0-0.8); Eosinophils % 1.7 %; Hematocrit 39.9 % (37-53); Lymphocytes # 1.2 10^3/uL (0.8-4.8); Lymphocytes % 20.6 %; Mean Corpuscular HGB Conc 31.3 g/dL (30-55); Mean Corpuscular Hemoglobin 25.4 pg (27-33); Mean Corpuscular Volume 81.1 fl (82-101); Monocytes # 0.5 10^3/uL (0.2-0.9); Monocytes % 8.8 %; Neutrophils # 4.01 10^3/uL (1.8-7.7); Neutrophils % 67.7 %; Nucleated Red Blood Cells % 0 %; Red Blood Count 4.92 10^6/uL (3.85-5.65); Red Cell Distribution Width 16.6 % (12.1-15.1); White Blood Count 5.92 10^3/uL (3.29-11.43)
[2023-12-04 09:30] LABS: Slide Review Slide Review Perform
[2023-12-04 09:36] LABS: Platelet Count 21 10^3/cmm (157-399)
[2023-12-04 17:44] LABS: Platelet Count 21 10^3/cmm (157-399)
== END 2023-12-04 08:26 | disposition home or self-care (01) ==
LOC: LAB 08:27
PROVIDERS: Visit Provider Internal Medicine
DX: Z48.24 Encounter for aftercare following lung transplant (principal)
CPT/HCPCS: 36415; 85025; 85049

== ENCOUNTER 2023-12-09 07:59 | Outpatient (CLI) | payer MEDICARE, SELFPAY ==
[2023-12-09 08:26] LABS: Basophils % 0.3 %; Eosinophils # 0.1 10^3/uL (0.0-0.8); Hematocrit 39.2 % (37-53); Lymphocytes # 1.7 10^3/uL (0.8-4.8); Lymphocytes % 27.4 %; Mean Corpuscular HGB Conc 30.9 g/dL (30-55); Mean Corpuscular Hemoglobin 24.9 pg (27-33); Mean Corpuscular Volume 80.8 fl (82-101); Monocytes % 16.7 %; Neutrophils # 3.17 10^3/uL (1.8-7.7); Nucleated Red Blood Cells % 0 %; Platelet Count 36 10^3/cmm (157-399); Red Blood Count 4.85 10^6/uL (3.85-5.65); Red Cell Distribution Width 15.9 % (12.1-15.1)
[2023-12-09 08:55] LABS: Slide Review Slide Review Perform
== END 2023-12-09 08:00 | disposition home or self-care (01) ==
LOC: LAB 08:01
PROVIDERS: PCP Clinical Nurse Specialist Adult Health; Visit Provider Internal Medicine
DX: Z48.24 Encounter for aftercare following lung transplant (principal)
CPT/HCPCS: 85025

== ENCOUNTER → 2023-12-11 12:56 | Outpatient (BNVA) | payer MEDICARE, SELFPAY | PROVIDERS: PCP Clinical Nurse Specialist Adult Health; Visit Provider Dermatology | DX: C44.219 Basal cell carcinoma of skin of left ear and external auricular canal (principal); D04.4 Carcinoma in situ of skin of scalp and neck; C44.319 Basal cell carcinoma of skin of other parts of face; L57.0 Actinic keratosis; L81.4 Other melanin hyperpigmentation; L57.8 Other skin changes due to chronic exposure to nonionizing radiation; D18.01 Hemangioma of skin and subcutaneous tissue; Z85.828 Personal history of other malignant neoplasm of skin; Z85.820 Personal history of malignant melanoma of skin; D84.9 Immunodeficiency, unspecified | CPT/HCPCS: 17000; 17281; 99214 ==

== ENCOUNTER 2023-12-15 08:46 | Outpatient (CLI) | payer MEDICARE, SELFPAY ==
[2023-12-15 10:00] LABS: Basophils % 0.2 %; Eosinophils # 0.1 10^3/uL (0.0-0.8); Eosinophils % 1.8 %; Lymphocytes # 1.4 10^3/uL (0.8-4.8); Lymphocytes % 31.4 %; Mean Corpuscular HGB Conc 30.5 g/dL (30-55); Mean Corpuscular Hemoglobin 25.2 pg (27-33); Mean Corpuscular Volume 82.6 fl (82-101); Mean Platelet Volume 11.1 fL (7.4-10.4); Monocytes # 0.7 10^3/uL (0.2-0.9); Monocytes % 16.4 %; Neutrophils # 2.14 10^3/uL (1.8-7.7); Neutrophils % 48.6 %; Nucleated Red Blood Cells % 0 %; Platelet Count 126 10^3/cmm (157-399); Red Blood Count 4.72 10^6/uL (3.85-5.65); Red Cell Distribution Width 16.7 % (12.1-15.1)
== END 2023-12-15 08:47 | disposition home or self-care (01) ==
PROVIDERS: PCP Clinical Nurse Specialist Adult Health; Visit Provider Internal Medicine
DX: Z48.24 Encounter for aftercare following lung transplant (principal)
CPT/HCPCS: 36415; 85025

== ENCOUNTER 2023-12-29 08:08 | Outpatient (CLI) | payer MEDICARE, SELFPAY ==
[2023-12-29 08:58] LABS: Basophils % 0.2 %; Eosinophils # 0.1 10^3/uL (0.0-0.8); Eosinophils % 2.4 %; Hematocrit 38.4 % (37-53); Lymphocytes # 1.2 10^3/uL (0.8-4.8); Lymphocytes % 23.5 %; Mean Platelet Volume 11.6 fL (7.4-10.4); Monocytes # 0.7 10^3/uL (0.2-0.9); Monocytes % 13.5 %; Neutrophils # 3.04 10^3/uL (1.8-7.7); Neutrophils % 59.6 %; Nucleated Red Blood Cells % 0 %; Platelet Count 76 10^3/cmm (157-399); Red Blood Count 4.57 10^6/uL (3.85-5.65); Red Cell Distribution Width 18.6 % (12.1-15.1)
[2023-12-29 09:04] LABS: Alanine Aminotransferase 15 U/L (0-41); Albumin Level 3.7 g/dL (3.5-5.2); Alkaline Phosphatase 59 U/L (40-130); Aspartate Amino Transferase 22 U/L (0-40); Blood Urea Nitrogen 22 mg/dL (8-23); Calcium 8.8 mg/dL (8.5-10.5); Carbon Dioxide 24 mmol/L (22-29); Chloride 107 mmol/L (98-107); Globulin 2.1 g/dL (1.3-4.6); Glucose 102 mg/dL (65-115); Osmolality Calculated 294 mOsm/kg (285-295); Sodium 140 mmol/L (136-145); Total Bilirubin 0.4 mg/dL (0.15-1.2); Total Protein 5.8 g/dL (6.6-8.7)
[2023-12-30 14:14] LABS: Tacrolimus, Highly Sensitive 7.1 mcg/L
== END 2023-12-29 08:09 | disposition home or self-care (01) ==
LOC: LAB 08:10
PROVIDERS: PCP Clinical Nurse Specialist Adult Health; Visit Provider Internal Medicine
DX: Z48.24 Encounter for aftercare following lung transplant (principal)
CPT/HCPCS: 36415; 80053; 80197; 85025

== ENCOUNTER → 2024-01-20 13:09 | Outpatient (BNVA) | payer MEDICARE, SELFPAY | PROVIDERS: PCP Nurse Practitioner; Visit Provider Dermatology | DX: D04.4 Carcinoma in situ of skin of scalp and neck (principal); C44.319 Basal cell carcinoma of skin of other parts of face; L82.1 Other seborrheic keratosis; L57.8 Other skin changes due to chronic exposure to nonionizing radiation; D84.9 Immunodeficiency, unspecified; C44.219 Basal cell carcinoma of skin of left ear and external auricular canal; L57.0 Actinic keratosis | CPT/HCPCS: 17000; 17281; 99214 ==

== ENCOUNTER → 2024-03-23 13:24 | Outpatient (BNVA) | payer MEDICARE, SELFPAY | PROVIDERS: PCP Nurse Practitioner; Visit Provider Dermatology | DX: C44.219 Basal cell carcinoma of skin of left ear and external auricular canal (principal); L57.8 Other skin changes due to chronic exposure to nonionizing radiation; D84.9 Immunodeficiency, unspecified; D22.39 Melanocytic nevi of other parts of face; D48.5 Neoplasm of uncertain behavior of skin | CPT/HCPCS: 69100; 99214 ==

== ENCOUNTER 2024-04-08 10:45 | Oncology outpatient (recurring) (ONCR) | payer MEDICARE, SELFPAY ==
--- NOTE | 2024-04-07 10:36 | N.ONRAD NP_ITS ---
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 STAGE: 1 left posterior auricular area-T2N0M0 2. left sabianism/right earlobe T1N0M0 ICD 10: C44.219, C44.212, C44 319 Radiotherapy to date: Summary > No prior radiation therapy. 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 Patient had bilateral lung transplant on 04/04/2022 and has been on immunosuppressive therapy since then. He remains very active. He was seen by Dr. Cristin Ferro on January 20, 2024 for a biopsy in the left posterior. This returned BCC superficial and early nodular extending to the lateral edge in the left inferior posterior auricular area with SCC in situ extending to the base and lateral edges. He was treated conservatively with cryosurgery and Efudex. He returned on 03/23/2024 and had a shave biopsy of the right earlobe and left temporal area which returned BCC. Options including Mohs as well as XRT were discussed in detail. Due to patient being on immunosuppressive drugs and having resultant intermittent thrombocytopenia it was felt that XRT would be safer to embark on for curative intent. XRT plans include left posterior auricular area with wax bolus, left sabianism, and right earlobe. Current Medications: Efudex, acyclovir, AZTHROMYCIN, METOPROLOL 25 mg, mycophenolate, PANTOPRAZOLE 40 mg, prednisone daily rosuvastatin 20 mg , SULFA/TRIMETH, TACROLIMUS QD Allergies: NKDA Medical History: No history of collagen vascular disease. No previous radiation therapy. Surgical History: As noted above Family History: No family history of melanoma. Social History: Smoking Status : Never smoker. 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 Patient is active and plays golf. Vital Signs: Performed on 04/07/2024 9:07 AM BMI - 26.788 kg/m2 (high), Height - 69 in, Weight - 181.4 lbs, Temperature - 97.1 f, Pulse - 69 /min, Respiration - 16 /min, O2 Sat - 97 %, Pain - 0, Fatigue - 0 and BP - 119/ 77 mm(hg). Physical Exam: Alert and active and answers questions appropriately. Surgical defect left posterior auricular/helix area measuring 2.5 x 1 cm, left temporal area measuring 1.5 cm and right earlobe measuring 0.5 cm Lungs clear to auscultation no intercostal retractions Abdomen soft nontender with no hepatosplenomegaly megaly. Extremities intact x 4 with a right sided Dupuytren's fifth finger Performance Status: KPS 90 Pathology: As above Lab: CBC weekly during treatment CBC pending to be obtained at simulation Imaging: See HPI Impression: Multiple BCCs of the head and neck in the background of lung transplant with immunosuppression Plan: Discussed options including Mohs surgery and XRT for the noted BCCs. Patient questions answered. Patient wishes to proceed with XRT and will undergo simulation on 04/08/2024 in the presence of the physics support. Patient signed informed consent under his own free will after all questions answered and side effects discussed. We will treat the 3 areas to 5500 cGy in 25 fractions along with bolus to the areas of concern. Signed by: 04/07/2024 10:34:38 AM <<Signature on File>> Time spent with patient: CPT Code: * CPT Code: *
[2024-04-08 10:49] LABS: Basophils % 0.3 %; Eosinophils # 0.1 10^3/uL (0.0-0.8); Hematocrit 39.1 % (37-53); Lymphocytes # 1.1 10^3/uL (0.8-4.8); Lymphocytes % 16.5 %; Mean Corpuscular HGB Conc 30.7 g/dL (30-55); Mean Corpuscular Hemoglobin 25.6 pg (27-33); Mean Corpuscular Volume 83.5 fl (82-101); Mean Platelet Volume 11.2 fL (7.4-10.4); Monocytes # 0.7 10^3/uL (0.2-0.9); Monocytes % 10.9 %; Neutrophils # 4.75 10^3/uL (1.8-7.7); Nucleated Red Blood Cells % 0 %; Platelet Count 113 10^3/cmm (157-399); Red Blood Count 4.68 10^6/uL (3.85-5.65); Red Cell Distribution Width 15.5 % (12.1-15.1); White Blood Count 6.79 10^3/uL (3.29-11.43)
== END 2024-04-09 23:59 | disposition home or self-care (01) ==
PROVIDERS: PCP Nurse Practitioner; Visit Provider Radiology Radiation Oncology
DX: Z53.9 Procedure and treatment not carried out, unspecified reason (principal); Z51.0 Encounter for antineoplastic radiation therapy; D04.22 Carcinoma in situ of skin of left ear and external auricular canal; C44.319 Basal cell carcinoma of skin of other parts of face; C44.212 Basal cell carcinoma of skin of right ear and external auricular canal; D69.6 Thrombocytopenia, unspecified
CPT/HCPCS: 36415; 77290; 77333; 85025; 99205

== ENCOUNTER 2024-04-15 09:44 | Outpatient (CLI) | payer MEDICARE, SELFPAY ==
[2024-04-15 10:14] LABS: Basophils % 0.1 %; Eosinophils # 0.1 10^3/uL (0.0-0.8); Eosinophils % 1.6 %; Hematocrit 41.8 % (37-53); Lymphocytes # 1.3 10^3/uL (0.8-4.8); Lymphocytes % 19.1 %; Mean Corpuscular HGB Conc 30.6 g/dL (30-55); Mean Corpuscular Hemoglobin 26.1 pg (27-33); Mean Corpuscular Volume 85.1 fl (82-101); Mean Platelet Volume 11.7 fL (7.4-10.4); Monocytes % 13.8 %; Neutrophils # 4.48 10^3/uL (1.8-7.7); Neutrophils % 64.3 %; Nucleated Red Blood Cells % 0 %; Platelet Count 116 10^3/cmm (157-399); Red Blood Count 4.91 10^6/uL (3.85-5.65); Red Cell Distribution Width 15.2 % (12.1-15.1); White Blood Count 6.97 10^3/uL (3.29-11.43)
[2024-04-15 10:33] LABS: Alanine Aminotransferase 26 U/L (0-41); Albumin Level 3.8 g/dL (3.5-5.2); Alkaline Phosphatase 70 U/L (40-130); Anion Gap 16.9 (5-19); Aspartate Amino Transferase 27 U/L (0-40); Blood Urea Nitrogen 26 mg/dL (8-23); Calcium 8.9 mg/dL (8.5-10.5); Carbon Dioxide 22 mmol/L (22-29); Chloride 107 mmol/L (98-107); Globulin 2.4 g/dL (1.3-4.6); Glucose 98 mg/dL (65-115); Osmolality Calculated 297 mOsm/kg (285-295); Potassium 4.9 mmol/L (3.5-5.1); Sodium 141 mmol/L (136-145); Total Bilirubin 0.4 mg/dL (0.15-1.2); Total Protein 6.2 g/dL (6.6-8.7)
[2024-04-16 15:59] LABS: Tacrolimus, Highly Sensitive 5.7 mcg/L
== END 2024-04-15 09:45 | disposition home or self-care (01) ==
PROVIDERS: PCP Nurse Practitioner; Visit Provider Internal Medicine
DX: Z48.24 Encounter for aftercare following lung transplant (principal)
CPT/HCPCS: 36415; 80053; 80197; 85025

== ENCOUNTER 2024-05-10 12:48 | Oncology outpatient (recurring) (ONCR) | payer MEDICARE, SELFPAY ==
--- NOTE | 2024-04-20 14:13 | ONCRAD TMN_ITS ---
Radiation Oncology Weekly Treatment Management Patient: Jose Amaya MR#: [id number] : 1950 Attending Physician: Dr. Jeanie Gibbs Date of Service: 04/20/2024 Fractions: 2 of 25 Referring Physician(s) : Diagnosis: Radiotherapy to date: Course: Head Neck 2024, Treatment Site: [facility], Ref. ID: LT [id number], Energy: 6E, Dose/Fx (cGy): 220, #Fx: 2 / 25, Dose Correction (cGy): 0, Total Dose Delivered (cGy): 440, Start Date: 04/19/2024, Elapsed Days: 1 Course: Head Neck 2024, Treatment Site: LT [facility], Ref. ID: LT [id number], Energy: 9E, Dose/Fx (cGy): 220, #Fx: 2 / 25, Dose Correction (cGy): 0, Total Dose Delivered (cGy): 440, Start Date: 04/19/2024, Elapsed Days: 1 Course: Head Neck 2024, Treatment Site: RT [facility] [id number], Ref. ID: [id number], Energy: 6E, Dose/Fx (cGy): 220, #Fx: 2 / 25, Dose Correction (cGy): 0, Total Dose Delivered (cGy): 440, Start Date: 04/19/2024, Elapsed Days: 1 Reason for visit: The patient is being seen today as part of their regularly scheduled weekly on treatment visits to assess for acute toxicities from radiotherapy. Review of Systems: Patient has noticed no changes Vital Signs: Performed on 04/20/2024 1:24 PM BMI - 27.054 kg/m2 (high), Height - 69 in, Weight - 183.2 lbs, Temperature - 96.9 f, Pulse - 69 /min, Respiration - 16 /min, O2 Sat - 97 %, Pain - 0, Fatigue - 0 and BP - 112/ 66 mm(hg). Physical Exam: No changes on exam Imaging: Radiation therapy imaging related to accurate target localization (i.e. KV, MV and CBCT) was reviewed. Appropriate changes, if any, were made to ensure treatment accuracy. Plan: Will continue with treatments as planned. He apparently gets his platelets checked every 3 months at [facility]. We discussed how the treatment he is receiving currently will not affect his counts but I did offer to him to check his platelets if he should like to do so between his parents visits. Signed by: Dr. Jeanie Gibbs 04/20/2024 2:12:24 PM
--- NOTE | 2024-04-27 13:03 | ONCRAD TMN_ITS ---
Radiation Oncology Weekly Treatment Management Patient: Monique Vaca MR#: [id number] : 1950> Attending Physician: Dr. Jeanie Gibbs Date of Service: 04/27/2024 Fractions: 7 out of 25 Referring Physician(s) : Diagnosis: Radiotherapy to date: Course: Head Neck 2024, Treatment Site: [facility], Ref. ID: LT [id number], Energy: 6E, Dose/Fx (cGy): 220, #Fx: 7 / 25, Dose Correction (cGy): 0, Total Dose Delivered (cGy): 1,540, Start Date: 04/19/2024, Elapsed Days: 8 Course: Head Neck 2024,Treatment Site: [facility], Ref. ID: LT [id number], Energy: 9E, Dose/Fx (cGy): 220, #Fx: 7 / 25, Dose Correction (cGy): 0, Total Dose Delivered (cGy): 1,540, Start Date: 04/19/2024, Elapsed Days: 8 Treatment Site: RT [facility] [id number], Ref. ID: [id number], Energy: 6E, Dose/Fx (cGy): 220, #Fx: 7 / 25, Dose Correction (cGy): 0, Total Dose Delivered (cGy): 1,540, Start Date: 04/19/2024, Elapsed Days: 8 Reason for visit: The patient is being seen today as part of their regularly scheduled weekly on treatment visits to assess for acute toxicities from radiotherapy. Review of Systems: Patient denies any complaints or changes Vital Signs: Performed on 04/27/2024 11:16 AM BMI - 26.847 kg/m2 (high), Height - 69 in, Weight - 181.8 lbs, Temperature - 96.3 f, Pulse - 57 /min (low), Respiration - 18 /min, O2 Sat - 98 %, Pain - 0, Fatigue - 0 and BP - 119/ 67 mm(hg). Physical Exam: No changes on exam Imaging: Radiation therapy imaging related to accurate target localization (i.e. KV, MV and CBCT) was reviewed. Appropriate changes, if any, were made to ensure treatment accuracy. Plan: Will continue with treatments as planned Signed by: Dr. Jeanie Gibbs 04/27/2024 1:02:38 PM
--- NOTE | 2024-05-04 13:26 | ONCRAD TMN_ITS ---
Radiation Oncology Weekly Treatment Management Patient: Jose Amaya MR#: [id number] : 1950 Attending Physician: Dr. Jeanie Gibbs Date of Service: 05/04/2024 Fraction: 12 out of 25 Referring Physician(s) : Diagnosis: Radiotherapy to date: Course: Head Neck 2024, Treatment Site: RT [place] [id number], Ref. ID: [id number], Energy: 6E, Dose/Fx (cGy): 220, #Fx: 25, Dose Correction (cGy): 0, Total Dose Delivered (cGy): 2,640, Start Date: 04/19/2024, Elapsed Days: 15 Course: Head Neck 2024, Treatment Site: LT [place], Ref. ID: LT [id number], Energy: 9E, Dose/Fx (cGy): 220, #Fx: 25, Dose Correction (cGy): 0, Total Dose Delivered (cGy): 2,640, Start Date: 04/19/2024, Elapsed Days: 15 Course: Head Neck 2024, Treatment Site: [facility], Ref. ID: LT [id number], Energy: 6E, Dose/Fx (cGy): 220, #Fx: , Dose Correction (cGy): 0, Total Dose Delivered (cGy): 2,640, Start Date: 04/19/2024, Elapsed Days: 15 Reason for visit: The patient is being seen today as part of their regularly scheduled weekly on treatment visits to assess for acute toxicities from radiotherapy. Review of Systems: Patient has noticed some erythema. He is using sunscreen and wearing a widebrimmed hat Vital Signs: Performed on 05/04/2024 1:00 PM BMI - 28.088 kg/m2 (high), Height - 69 in, Weight - 190.2 lbs, Temperature - 97.4 f, Pulse - 61 /min, Respiration - 17 /min, O2 Sat - 99 %, Pain - 0, Fatigue - 0 and BP - 114/ 68 mm(hg). Physical Exam: On exam his skin is erythematous and dry and he has several small skin cancers that are peeling off in the radiated field Imaging: Radiation therapy imaging related to accurate target localization (i.e. KV, MV and CBCT) was reviewed. Appropriate changes, if any, were made to ensure treatment accuracy. Plan: Will continue with his treatments plan he will can begin to use Aquaphor as needed Signed by: Dr. Jeanie Gibbs 05/04/2024 1:24:19 PM
== END 2024-05-10 23:59 | disposition home or self-care (01) ==
PROVIDERS: PCP Nurse Practitioner; Visit Provider Radiology Radiation Oncology
DX: Z51.0 Encounter for antineoplastic radiation therapy (principal); C44.212 Basal cell carcinoma of skin of right ear and external auricular canal; C44.319 Basal cell carcinoma of skin of other parts of face; D04.22 Carcinoma in situ of skin of left ear and external auricular canal
CPT/HCPCS: 77280; 77336; 77412; 99024

== ENCOUNTER 2024-05-21 11:20 | Oncology outpatient (recurring) (ONCR) | payer MEDICARE, SELFPAY ==
--- NOTE | 2024-05-11 13:40 | ONCRAD TMN_ITS ---
Radiation Oncology Weekly Treatment Management Patient: Monique Vaca MR#: [id number] : 1950> Attending Physician: Dr. Jeanie Gibbs Date of Service: 05/11/2024 Fractions: 17 out of 25 Referring Physician(s) : Diagnosis: Radiotherapy to date: Course: Head Neck 2024, Treatment Site: RT [place] , [id number], Ref. ID: [id number], Energy: 6E, Dose/Fx (cGy): 220, #Fx: 17 / 25, Dose Correction (cGy): 0, Total Dose Delivered (cGy): 3,740, Start Date: 04/19/2024, Elapsed Days: 22 Course: Head Neck 2024, Treatment Site: LT [facility], Ref. ID: LT [id number], Energy: 9E, Dose/Fx (cGy): 220, #Fx: 17 / 25, Dose Correction (cGy): 0, Total Dose Delivered (cGy): 3,740, Start Date: 04/19/2024, Elapsed Days: 22 Course: Head Neck 2024, Treatment Site: [facility], Ref. ID: LT [id number], Energy: 6E, Dose/Fx (cGy): 220, #Fx: 17 / 25, Dose Correction (cGy): 0, Total Dose Delivered (cGy): 3,740, Start Date: 04/19/2024, Elapsed Days: 22 Reason for visit: The patient is being seen today as part of their regularly scheduled weekly on treatment visits to assess for acute toxicities from radiotherapy. Review of Systems: Patient has no complaints Vital Signs: Performed on 05/11/2024 1:16 PM BMI - 27.763 kg/m2 (high), Height - 69 in, Weight - 188 lbs, Temperature - 98.6 f, Pulse - 69 /min, Respiration - 17 /min, O2 Sat - 97 %, Pain - 0, Fatigue - 0 and BP - 125/ 69 mm(hg). Physical Exam: Skin on exam is erythematous but there are no areas of moist or dry desquamation Imaging: Radiation therapy imaging related to accurate target localization (i.e. KV, MV and CBCT) was reviewed. Appropriate changes, if any, were made to ensure treatment accuracy. Plan: Will continue with treatments as planned Signed by: Dr. Jeanie Gibbs 05/11/2024 1:38:22 PM
--- NOTE | 2024-05-18 14:58 | ONCRAD TMN_ITS ---
Radiation Oncology Weekly Treatment Management Patient: Jose Amaya MR#: [id number] : 1950 Attending Physician: Dr. Rob Falk Date of Service: 05/18/2024 Referring Physician(s) : Diagnosis: Radiotherapy to date: Course: Head Neck 2024, Treatment Site: [facility] [place] [id number], Ref. ID: [id number], Energy: 6E, Dose/Fx (cGy): 220, #Fx: 22 / 25, Dose Correction (cGy): 0, Total Dose Delivered (cGy): 4,840, Start Date: 04/19/2024, Elapsed Days: 29 Course: Head Neck 2024, Treatment Site: [facility] [place], Ref. ID: [id number], Energy: 9E, Dose/Fx (cGy): 220, #Fx: 22 / 25, Dose Correction (cGy): 0, Total Dose Delivered (cGy): 4,840, Start Date: 04/19/2024, Elapsed Days: 29 Course: Head Neck 2024, Treatment Site: [facility] [place], Ref. ID: [id number], Energy: 6E, Dose/Fx (cGy): 220, #Fx: 22 / 25, Dose Correction (cGy): 0, Total Dose Delivered (cGy): 4,840, Start Date: 04/19/2024, Elapsed Days: 29 Reason for visit: The patient is being seen today as part of their regularly scheduled weekly on treatment visits to assess for acute toxicities from radiotherapy. Review of Systems: No complaints. Active. Vital Signs: Performed on 05/18/2024 1:09 PM BMI - 27.97 kg/m2 (high), Height - 69 in, Weight - 189.4 lbs, Temperature - 97.4 f, Pulse - 67 /min, Respiration - 16 /min, O2 Sat - 98 %, Pain - 0, Fatigue - 0 and BP - 134/ 72 mm(hg). Physical Exam: Erythema left ear, right ear and right mormon. No desquamation. Imaging: Radiation therapy imaging related to accurate target localization (i.e. KV, MV and CBCT) was reviewed. Appropriate changes, if any, were made to ensure treatment accuracy. Plan: Good tolerance of treatment. Continue as planned. Signed by: Dr. Rob Falk 05/18/2024 2:56:51 PM
--- NOTE | 2024-05-21 17:11 | N.ONRD TS_ITS ---
Radiation Oncology Treatment Summary Patient: Shiloh MR#: [id number] : 1950> Age: 73> Sex: Male Dictated by: Dr. 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 ID: [id number] Energy: 6E Dose/Fx (cGy): 220 #Fx: 25 / 25 Dose Correction (cGy): 0 Total Dose Delivered (cGy): 5,500 Start Date: 04/19/2024 End Date: 05/21/2024 Elapsed Days: 32 Course: Head Neck 2024 Treatment Site: [facility] [place] Ref. ID: [id number] Energy: 9E Dose/Fx (cGy): 220 #Fx: 25 / 25 Dose Correction (cGy): 0 Total Dose Delivered (cGy): 5,500 Start Date: 04/19/2024 End Date: 05/21/2024 Elapsed Days: 32 Course: Head Neck 2024 Treatment Site: [facility] [place] Ref. ID: [id number] Energy: 6E Dose/Fx (cGy): 220 #Fx: 25 / 25 Dose Correction (cGy): 0 Total Dose Delivered (cGy): 5,500 Start Date: 04/19/2024 End Date: 05/21/2024 Elapsed Days: 32 Clinical Summary: The patient tolerated RT well. He had localized erythema at the local treatment sites. He otherwise had no sxs. Plan: End of treatment today. Continue on the above medication until the skin reaction resolves. Follow up in one month. Signed by: Dr. Rob Falk>05/21/2024 5:09:23 PM <<Signature on File>>
== END 2024-06-09 23:59 | disposition home or self-care (01) ==
PROVIDERS: PCP Nurse Practitioner; Visit Provider Radiology Radiation Oncology
DX: Z51.0 Encounter for antineoplastic radiation therapy (principal); C44.219 Basal cell carcinoma of skin of left ear and external auricular canal; C44.319 Basal cell carcinoma of skin of other parts of face; C44.212 Basal cell carcinoma of skin of right ear and external auricular canal
CPT/HCPCS: 77336; 77412; 99024

== ENCOUNTER 2024-06-24 11:01 | Oncology outpatient (recurring) (ONCR) | payer MEDICARE, SELFPAY ==
--- NOTE | 2024-06-24 14:58 | ONCRAD EPV_ITS ---
Radiation Oncology Established Patient Visit Patient: Monique Garcia [id number] : 1950> Age: 73> Sex: Male> Dictated by: Michael Quiros DO/AKIL/ORTIZ Date of Service: 06/24/2024 Referring Physician(s) : Dr. Cristin Ferro Diagnosis: C44.300 - Unspecified malignant neoplasm of skin of unspecified part of face, Diagnosed 05/19/2024 (Active) Radiotherapy to Date: Course: Head Neck 2024, Treatment Site: [facility] [place] [id number], Ref. ID: [id number], Energy: 6E, Dose/Fx (cGy): 220, #Fx: 25 / 25, Dose Correction (cGy): 0, Total Dose Delivered (cGy): 5,500, Start Date: 04/19/2024, End Date: 05/21/2024, Elapsed Days: 32 Course: Head Neck 2024, Treatment Site: LT [place], Ref. ID: [id number], Energy: 9E, Dose/Fx (cGy): 220, #Fx: 25 / 25, Dose Correction (cGy): 0, Total Dose Delivered (cGy): 5,500, Start Date: 04/19/2024, End Date: 05/21/2024, Elapsed Days: 32 Treatment Site: [facility] [place], Ref. 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 He completed 5500 cGy in in 25 fractions completing this on 05/21/2024. He is well-healed in all 3 sites at this time. He saw Dr. Ferro earlier this afternoon and had scraping of the vertex. Current Medications: Efudex, acyclovir, AZTHROMYCIN, METOPROLOL 25 mg, mycophenolate, PANTOPRAZOLE 40 mg, prednisone daily rosuvastatin 20 mg , SULFA/TRIMETH, TACROLIMUS QD Allergies: No Known Allergies Current Complaints / Review of Systems: . Vital Signs: Performed on 06/24/2024 2:31 PM BMI - 28.235 kg/m2 (high), Height - 69 in, Weight - 191.2 lbs, Temperature - 97.5 f, Pulse - 72 /min, Respiration - 18 /min, O2 Sat - 98 %, Pain - 0, Fatigue - 0 and BP - 130/ 73 mm(hg). Physical Exam: General: Alert and oriented x 3. No acute distress. HEENT: Normocephalic, atraumatic. Extraocular Movements Intact: Pupils Equal, Round, Reactive to Light and Accommodation: Sclerae anicteric. Oral cavity is clear without lesions, masses or ulcers. Well-healed XRT sites. NECK: Supple without supraclavicular or jugular lymphadenopathy. LUNGS: Clear to auscultation bilaterally without rales, rhonchi or wheeze. HEART: Regular rate and rhythm, normal S1 and S2 without murmur, gallop or rub. MUSCULOSKELETAL: No tenderness or percussion pain over the axial skeleton, scapulae or pelvis. ABDOMEN: Soft, nontender, nondistended without masses or organomegaly. Bowell sounds are present. EXTREMITIES: No peripheral edema is identified. Limited motor and sensory examination are grossly intact and symmetric bilaterally. NEUROLOGIC: Cranial nerves II ???XII are grossly intact. Normal sensation, strength 5/5 in all extremities, normal gait, no ataxia. Performance Status: KPS 90 Lab: None pending. Pathology: Primary, c44.300 - unspecified malignant neoplasm of skin of unspecified part of face, Diagnosed 05/19/2024 (active) . Imaging: See HPI Impression: 1 month status post XRT to the right earlobe left hinduism and left posterior auricular areas completing this on 05/21/2024. We will have the patient follow-up with Dr. Ferro in the future. He will return should he need to in the future. Signed by: 06/24/2024 2:57:04 PM <<Signature on File>> Time spent with patient: 20 minutes. Global CPT CPT Code: CPT Code:
== END 2024-07-10 23:59 | disposition home or self-care (01) ==
LOC: ONCMED 11:04
PROVIDERS: PCP Nurse Practitioner; Visit Provider Radiology Radiation Oncology
DX: C44.219 Basal cell carcinoma of skin of left ear and external auricular canal (principal); C44.319 Basal cell carcinoma of skin of other parts of face; C44.212 Basal cell carcinoma of skin of right ear and external auricular canal
CPT/HCPCS: 17000; 99024; 99214

== ENCOUNTER 2024-07-06 07:57 | Outpatient (CLI) | payer MEDICARE, SELFPAY ==
[2024-07-06 08:46] LABS: Anion Gap 13.2 (5-19); Blood Urea Nitrogen 29 mg/dL (8-23); Calcium 9.4 mg/dL (8.5-10.5); Carbon Dioxide 24 mmol/L (22-29); Chloride 107 mmol/L (98-107); Glucose 97 mg/dL (65-115); Osmolality Calculated 294 mOsm/kg (285-295); Potassium 5.2 mmol/L (3.5-5.1); Sodium 139 mmol/L (136-145)
[2024-07-07 15:05] LABS: Tacrolimus, Highly Sensitive 8.1 mcg/L
== END 2024-07-06 07:58 | disposition home or self-care (01) ==
PROVIDERS: PCP Nurse Practitioner; Visit Provider Internal Medicine
DX: Z48.24 Encounter for aftercare following lung transplant (principal); Z51.81 Encounter for therapeutic drug level monitoring
CPT/HCPCS: 36415; 80048; 80197

== ENCOUNTER 2024-08-04 08:14 | Outpatient (CLI) | payer MEDICARE, SELFPAY ==
[2024-08-04 09:01] LABS: Basophils % 0.2 %; Eosinophils # 0.1 10^3/uL (0.0-0.8); Eosinophils % 1.4 %; Hematocrit 40.9 % (37-53); Lymphocytes # 1.7 10^3/uL (0.8-4.8); Lymphocytes % 27.2 %; Mean Corpuscular HGB Conc 30.8 g/dL (30-55); Mean Platelet Volume 10.5 fL (7.4-10.4); Monocytes # 0.7 10^3/uL (0.2-0.9); Monocytes % 10.4 %; Neutrophils # 3.77 10^3/uL (1.8-7.7); Neutrophils % 60.5 %; Nucleated Red Blood Cells % 0 %; Platelet Count 89 10^3/cmm (157-399); Red Blood Count 5.05 10^6/uL (3.85-5.65); Red Cell Distribution Width 15.8 % (12.1-15.1); White Blood Count 6.24 10^3/uL (3.29-11.43)
[2024-08-04 09:24] LABS: Alanine Aminotransferase 29 U/L (0-41); Albumin Level 3.9 g/dL (3.5-5.2); Alkaline Phosphatase 63 U/L (40-130); Anion Gap 13.1 (5-19); Aspartate Amino Transferase 25 U/L (0-40); Blood Urea Nitrogen 20 mg/dL (8-23); Calcium 8.8 mg/dL (8.5-10.5); Carbon Dioxide 24 mmol/L (22-29); Chloride 107 mmol/L (98-107); Globulin 2.4 g/dL (1.3-4.6); Glucose 102 mg/dL (65-115); Osmolality Calculated 293 mOsm/kg (285-295); Potassium 4.1 mmol/L (3.5-5.1); Sodium 140 mmol/L (136-145); Total Bilirubin 0.4 mg/dL (0.15-1.2); Total Protein 6.3 g/dL (6.6-8.7)
[2024-08-05 15:59] LABS: Tacrolimus, Highly Sensitive 4.4 mcg/L
== END 2024-08-04 08:15 | disposition home or self-care (01) ==
PROVIDERS: PCP Nurse Practitioner; Visit Provider Internal Medicine
DX: Z48.24 Encounter for aftercare following lung transplant (principal); Z94.2 Lung transplant status; Z51.81 Encounter for therapeutic drug level monitoring
CPT/HCPCS: 36415; 80053; 80169; 80197; 85025

== ENCOUNTER 2024-08-16 08:35 | Outpatient (CLI) | payer MEDICARE, SELFPAY ==
[2024-08-16 09:57] LABS: Alanine Aminotransferase 24 U/L (0-41); Albumin Level 3.8 g/dL (3.5-5.2); Alkaline Phosphatase 62 U/L (40-130); Anion Gap 13.4 (5-19); Aspartate Amino Transferase 26 U/L (0-40); Blood Urea Nitrogen 20 mg/dL (8-23); Calcium 9.0 mg/dL (8.5-10.5); Carbon Dioxide 23 mmol/L (22-29); Chloride 110 mmol/L (98-107); Globulin 2.5 g/dL (1.3-4.6); Glucose 102 mg/dL (65-115); Osmolality Calculated 297 mOsm/kg (285-295); Potassium 4.4 mmol/L (3.5-5.1); Sodium 142 mmol/L (136-145); Total Protein 6.3 g/dL (6.6-8.7)
[2024-08-17 13:39] LABS: Tacrolimus, Highly Sensitive 5.3 mcg/L
[2024-08-19 22:44] LABS: Everolimus LC/MS/MS Blood 5.4 ng/mL
== END 2024-08-16 08:36 | disposition home or self-care (01) ==
LOC: LAB 08:39
PROVIDERS: PCP Nurse Practitioner; Visit Provider Internal Medicine
DX: Z48.24 Encounter for aftercare following lung transplant (principal); Z94.2 Lung transplant status
CPT/HCPCS: 36415; 80053; 80169; 80197

== ENCOUNTER → 2024-08-23 09:25 | Outpatient (BNVA) | payer MEDICARE, SELFPAY | PROVIDERS: PCP Nurse Practitioner; Visit Provider Dermatology | DX: D69.2 Other nonthrombocytopenic purpura (principal); D22.5 Melanocytic nevi of trunk; C44.219 Basal cell carcinoma of skin of left ear and external auricular canal; L72.0 Epidermal cyst; D48.9 Neoplasm of uncertain behavior, unspecified; D22.39 Melanocytic nevi of other parts of face; Z08 Encounter for follow-up examination after completed treatment for malignant neoplasm; Z85.820 Personal history of malignant melanoma of skin; Z92.3 Personal history of irradiation; L57.0 Actinic keratosis | CPT/HCPCS: 17000; 99214 ==

== ENCOUNTER 2024-09-06 08:11 | Outpatient (CLI) | payer MEDICARE, SELFPAY ==
[2024-09-06 09:49] LABS: Hematocrit 41.1 % (37-53); Hemoglobin 12.30 g/dL (11.27-16.99); Mean Corpuscular HGB Conc 29.9 g/dL (30-55); Mean Corpuscular Hemoglobin 23.7 pg (27-33); Mean Corpuscular Volume 79.2 fl (82-101); Nucleated Red Blood Cells % 0 %; Platelet Count 77 10^3/cmm (157-399); Red Blood Count 5.19 10^6/uL (3.85-5.65); White Blood Count 6.10 10^3/uL (3.29-11.43)
[2024-09-06 10:13] LABS: Alanine Aminotransferase 23 U/L (0-41); Albumin Level 3.9 g/dL (3.5-5.2); Alkaline Phosphatase 68 U/L (40-130); Anion Gap 16.3 (5-19); Aspartate Amino Transferase 26 U/L (0-40); Blood Urea Nitrogen 25 mg/dL (8-23); Calcium 8.7 mg/dL (8.5-10.5); Carbon Dioxide 22 mmol/L (22-29); Chloride 106 mmol/L (98-107); Globulin 2.4 g/dL (1.3-4.6); Glucose 96 mg/dL (65-115); Osmolality Calculated 294 mOsm/kg (285-295); Potassium 4.3 mmol/L (3.5-5.1); Sodium 140 mmol/L (136-145); Total Protein 6.3 g/dL (6.6-8.7)
[2024-09-07 17:44] LABS: Tacrolimus, Highly Sensitive 6.0 mcg/L
[2024-09-08 20:55] LABS: Everolimus LC/MS/MS Blood 6.4 ng/mL
== END 2024-09-06 08:12 | disposition home or self-care (01) ==
PROVIDERS: PCP Nurse Practitioner; Visit Provider Internal Medicine
DX: Z48.24 Encounter for aftercare following lung transplant (principal); Z51.81 Encounter for therapeutic drug level monitoring; Z94.2 Lung transplant status
CPT/HCPCS: 36415; 80053; 80169; 80197; 85025

== ENCOUNTER 2024-09-13 08:02 | Outpatient (CLI) | payer MEDICARE, SELFPAY ==
[2024-09-13 08:49] LABS: Hematocrit 41.7 % (37-53); Hemoglobin 12.90 g/dL (11.27-16.99); Mean Corpuscular HGB Conc 30.9 g/dL (30-55); Mean Corpuscular Hemoglobin 24.5 pg (27-33); Mean Corpuscular Volume 79.3 fl (82-101); Nucleated Red Blood Cells % 0 %; Platelet Count 67 10^3/cmm (157-399); Red Blood Count 5.26 10^6/uL (3.85-5.65); White Blood Count 5.50 10^3/uL (3.29-11.43)
[2024-09-13 09:08] LABS: Alanine Aminotransferase 24 U/L (0-41); Albumin Level 3.7 g/dL (3.5-5.2); Alkaline Phosphatase 63 U/L (40-130); Anion Gap 12.1 (5-19); Aspartate Amino Transferase 26 U/L (0-40); Blood Urea Nitrogen 20 mg/dL (8-23); Calcium 9.3 mg/dL (8.5-10.5); Carbon Dioxide 24 mmol/L (22-29); Chloride 109 mmol/L (98-107); Globulin 2.5 g/dL (1.3-4.6); Glucose 101 mg/dL (65-115); Osmolality Calculated 295 mOsm/kg (285-295); Potassium 4.1 mmol/L (3.5-5.1); Sodium 141 mmol/L (136-145); Total Protein 6.2 g/dL (6.6-8.7)
[2024-09-14 15:48] LABS: Tacrolimus, Highly Sensitive 5.8 mcg/L
== END 2024-09-13 08:03 | disposition home or self-care (01) ==
PROVIDERS: PCP Nurse Practitioner; Visit Provider Internal Medicine
DX: Z48.24 Encounter for aftercare following lung transplant (principal); Z94.2 Lung transplant status
CPT/HCPCS: 36415; 80053; 80169; 80197; 85025

== ENCOUNTER 2024-09-22 08:17 | Outpatient (CLI) | payer MEDICARE, SELFPAY ==
[2024-09-22 09:50] LABS: Hematocrit 39.6 % (37-53); Hemoglobin 12.40 g/dL (11.27-16.99); Mean Corpuscular HGB Conc 31.3 g/dL (30-55); Mean Corpuscular Hemoglobin 24.8 pg (27-33); Mean Corpuscular Volume 79.2 fl (82-101); Nucleated Red Blood Cells % 0 %; Platelet Count 74 10^3/cmm (157-399); Red Blood Count 5.00 10^6/uL (3.85-5.65); White Blood Count 4.90 10^3/uL (3.29-11.43)
[2024-09-22 10:09] LABS: Alanine Aminotransferase 24 U/L (0-41); Albumin Level 3.8 g/dL (3.5-5.2); Alkaline Phosphatase 61 U/L (40-130); Anion Gap 12.4 (5-19); Aspartate Amino Transferase 27 U/L (0-40); Blood Urea Nitrogen 27 mg/dL (8-23); Calcium 9.0 mg/dL (8.5-10.5); Carbon Dioxide 23 mmol/L (22-29); Chloride 109 mmol/L (98-107); Globulin 2.3 g/dL (1.3-4.6); Glucose 92 mg/dL (65-115); Osmolality Calculated 295 mOsm/kg (285-295); Potassium 4.4 mmol/L (3.5-5.1); Sodium 140 mmol/L (136-145); Total Protein 6.1 g/dL (6.6-8.7)
[2024-09-23 17:49] LABS: Tacrolimus, Highly Sensitive 5.7 mcg/L
== END 2024-09-22 08:18 | disposition home or self-care (01) ==
PROVIDERS: PCP Nurse Practitioner; Visit Provider Internal Medicine
DX: Z48.24 Encounter for aftercare following lung transplant (principal)
CPT/HCPCS: 36415; 80053; 80169; 80197; 85025

== ENCOUNTER 2024-10-05 08:24 | Outpatient (CLI) | payer MEDICARE, SELFPAY ==
[2024-10-05 10:35] LABS: Hematocrit 40.2 % (37-53); Hemoglobin 12.40 g/dL (11.27-16.99); Mean Corpuscular HGB Conc 30.8 g/dL (30-55); Mean Corpuscular Hemoglobin 24.6 pg (27-33); Mean Corpuscular Volume 79.8 fl (82-101); Nucleated Red Blood Cells % 0 %; Platelet Count 89 10^3/cmm (157-399); Red Blood Count 5.04 10^6/uL (3.85-5.65); White Blood Count 5.63 10^3/uL (3.29-11.43)
[2024-10-05 10:59] LABS: Alanine Aminotransferase 27 U/L (0-41); Albumin Level 3.8 g/dL (3.5-5.2); Alkaline Phosphatase 56 U/L (40-130); Anion Gap 10.8 (5-19); Aspartate Amino Transferase 29 U/L (0-40); Blood Urea Nitrogen 22 mg/dL (8-23); Calcium 9.2 mg/dL (8.5-10.5); Carbon Dioxide 24 mmol/L (22-29); Chloride 106 mmol/L (98-107); Globulin 2.3 g/dL (1.3-4.6); Glucose 97 mg/dL (65-115); Osmolality Calculated 287 mOsm/kg (285-295); Potassium 3.8 mmol/L (3.5-5.1); Sodium 137 mmol/L (136-145); Total Protein 6.1 g/dL (6.6-8.7)
[2024-10-06 15:37] LABS: Tacrolimus, Highly Sensitive 5.5 mcg/L
== END 2024-10-05 08:25 | disposition home or self-care (01) ==
PROVIDERS: PCP Nurse Practitioner; Visit Provider Internal Medicine
DX: Z48.24 Encounter for aftercare following lung transplant (principal); Z51.81 Encounter for therapeutic drug level monitoring
CPT/HCPCS: 36415; 80053; 80169; 80197; 85025

== ENCOUNTER 2024-11-05 08:14 | Outpatient (CLI) | payer MEDICARE, SELFPAY ==
[2024-11-05 08:43] LABS: Hematocrit 39.5 % (37-53); Hemoglobin 12.40 g/dL (11.27-16.99); Mean Corpuscular HGB Conc 31.4 g/dL (30-55); Mean Corpuscular Hemoglobin 24.9 pg (27-33); Mean Corpuscular Volume 79.3 fl (82-101); Nucleated Red Blood Cells % 0 %; Platelet Count 71 10^3/cmm (157-399); Red Blood Count 4.98 10^6/uL (3.85-5.65); White Blood Count 5.22 10^3/uL (3.29-11.43)
[2024-11-05 09:04] LABS: Alanine Aminotransferase 21 U/L (0-41); Albumin Level 3.7 g/dL (3.5-5.2); Alkaline Phosphatase 59 U/L (40-130); Anion Gap 12.9 (5-19); Aspartate Amino Transferase 23 U/L (0-40); Blood Urea Nitrogen 28 mg/dL (8-23); Calcium 8.9 mg/dL (8.5-10.5); Carbon Dioxide 23 mmol/L (22-29); Chloride 104 mmol/L (98-107); Globulin 2.5 g/dL (1.3-4.6); Glucose 110 mg/dL (65-115); Osmolality Calculated 288 mOsm/kg (285-295); Potassium 3.9 mmol/L (3.5-5.1); Sodium 136 mmol/L (136-145); Total Protein 6.2 g/dL (6.6-8.7)
== END 2024-11-05 08:15 | disposition home or self-care (01) ==
PROVIDERS: PCP Nurse Practitioner; Visit Provider Internal Medicine
DX: Z48.24 Encounter for aftercare following lung transplant (principal); Z94.2 Lung transplant status
CPT/HCPCS: 80053; 80169; 80197; 85025

== ENCOUNTER → 2024-11-22 08:22 | Outpatient (BNVA) | payer MEDICARE, SELFPAY | PROVIDERS: Visit Provider Dermatology | DX: L72.0 Epidermal cyst (principal); D84.9 Immunodeficiency, unspecified; Z85.820 Personal history of malignant melanoma of skin; Z92.3 Personal history of irradiation; Z08 Encounter for follow-up examination after completed treatment for malignant neoplasm; Z85.828 Personal history of other malignant neoplasm of skin; D48.5 Neoplasm of uncertain behavior of skin; L57.0 Actinic keratosis | CPT/HCPCS: 11102; 17000; 99213 ==

== ENCOUNTER 2025-01-07 07:37 | Outpatient (CLI) | payer MEDICARE, SELFPAY ==
[2025-01-07 08:06] LABS: Hematocrit 42.3 % (37-53); Hemoglobin 12.70 g/dL (11.27-16.99); Mean Corpuscular HGB Conc 30.0 g/dL (30-55); Mean Corpuscular Hemoglobin 24.6 pg (27-33); Mean Corpuscular Volume 82.0 fl (82-101); Nucleated Red Blood Cells % 0 %; Platelet Count 133 10^3/cmm (157-399); Red Blood Count 5.16 10^6/uL (3.85-5.65); White Blood Count 7.76 10^3/uL (3.29-11.43)
[2025-01-07 08:32] LABS: Alanine Aminotransferase 18 U/L (0-41); Albumin Level 3.5 g/dL (3.5-5.2); Alkaline Phosphatase 66 U/L (40-130); Anion Gap 11.7 (5-19); Aspartate Amino Transferase 18 U/L (0-40); Blood Urea Nitrogen 29 mg/dL (8-23); Calcium 8.3 mg/dL (8.5-10.5); Carbon Dioxide 23 mmol/L (22-29); Chloride 106 mmol/L (98-107); Globulin 2.2 g/dL (1.3-4.6); Glucose 96 mg/dL (65-115); Osmolality Calculated 290 mOsm/kg (285-295); Potassium 3.7 mmol/L (3.5-5.1); Sodium 137 mmol/L (136-145); Total Protein 5.7 g/dL (6.6-8.7)
[2025-01-08 15:50] LABS: Tacrolimus, Highly Sensitive 3.8 mcg/L
[2025-01-10 20:24] LABS: Everolimus LC/MS/MS Blood 3.7 ng/mL
== END 2025-01-07 07:38 | disposition home or self-care (01) ==
PROVIDERS: PCP Nurse Practitioner; Visit Provider Internal Medicine
DX: Z01.89 Encounter for other specified special examinations (principal)
CPT/HCPCS: 36415; 80053; 80169; 80197; 85025

== ENCOUNTER 2025-01-18 07:56 | Outpatient (CLI) | payer MEDICARE, SELFPAY ==
[2025-01-18 08:21] LABS: Hematocrit 42.0 % (37-53); Hemoglobin 12.90 g/dL (11.27-16.99); Mean Corpuscular HGB Conc 30.7 g/dL (30-55); Mean Corpuscular Hemoglobin 25.0 pg (27-33); Mean Corpuscular Volume 81.2 fl (82-101); Nucleated Red Blood Cells % 0 %; Platelet Count 84 10^3/cmm (157-399); Red Blood Count 5.17 10^6/uL (3.85-5.65); White Blood Count 5.93 10^3/uL (3.29-11.43)
[2025-01-18 08:42] LABS: Alanine Aminotransferase 21 U/L (0-41); Albumin Level 3.7 g/dL (3.5-5.2); Alkaline Phosphatase 66 U/L (40-130); Anion Gap 12.0 (5-19); Aspartate Amino Transferase 22 U/L (0-40); Blood Urea Nitrogen 27 mg/dL (8-23); Calcium 8.4 mg/dL (8.5-10.5); Carbon Dioxide 26 mmol/L (22-29); Chloride 105 mmol/L (98-107); Globulin 2.1 g/dL (1.3-4.6); Glucose 101 mg/dL (65-115); Osmolality Calculated 293 mOsm/kg (285-295); Potassium 4.0 mmol/L (3.5-5.1); Sodium 139 mmol/L (136-145); Total Protein 5.8 g/dL (6.6-8.7)
== END 2025-01-18 07:57 | disposition home or self-care (01) ==
PROVIDERS: PCP Nurse Practitioner; Visit Provider Internal Medicine
DX: Z51.81 Encounter for therapeutic drug level monitoring (principal); Z94.2 Lung transplant status
CPT/HCPCS: 36415; 80053; 80169; 80197; 85025